=== PATIENT | female | born 2000 | race Two or more races ===

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

== ENCOUNTER 2022-08-16 16:24 | Outpatient (REF) | payer OTHER, MEDICAID, SELFPAY ==
--- NOTE | ~2022-08-16 | XR_ITS ---
EXAMINATION: XR THORACOLUMBAR SPINE CLINICAL INFORMATION: Patient states on and off pain for months. Pain on right side of upper back. COMPARISON: Chest of 08/14/2021. TECHNIQUE: 4 views of the thoracic spine. FINDINGS: Slight rightward curvature at the thoracolumbar junction. No thoracic vertebral body compression fractures are identified. Mild degenerative changes with hypertrophic change at the lower thoracic spine. Degenerative changes on limited views of the cervical spine. XR/XR thoracic spine 2V IMPRESSION: 1. Slight rightward curvature at the thoracolumbar junction. 2. Mild degenerative changes with hypertrophic change at the lower thoracic spine. 3. Degenerative changes on limited views of the cervical spine could be evaluated with dedicated views of the cervical spine.
== END 2022-08-16 16:25 | disposition home or self-care (01) ==
LOC: HO.HHCX 16:24
PROVIDERS: Visit Provider Registered Nurse
DX: M54.6 Pain in thoracic spine (principal)
CPT/HCPCS: 72070

== ENCOUNTER 2022-09-27 10:54 | Outpatient (REF) | payer OTHER, MEDICAID, SELFPAY ==
[2022-09-27 12:11] LABS: Hemoglobin 11.7 g/dl (12.0-16.0)
[2022-09-27 13:15] LABS: Alanine Aminotransferase 15 U/L (0-31); Aspartate Amino Transferase 16 U/L (5-31)
== END 2022-09-27 10:55 | disposition home or self-care (01) ==
LOC: HO.HHCL 10:54
PROVIDERS: Visit Provider Advanced Practice Midwife
DX: F66 Other sexual disorders (principal); D64.9 Anemia, unspecified
CPT/HCPCS: 36415; 84450; 84460; 85014; 85018

== ENCOUNTER 2022-10-07 14:35 | Outpatient (REF) | payer OTHER, MEDICAID, SELFPAY ==
--- NOTE | ~2022-10-07 | XR_ITS ---
EXAMINATION: XR CERVICAL SPINE CLINICAL INFORMATION: Left-sided pain radiating to neck and head COMPARISON: None available. TECHNIQUE: Frontal, lateral and open-mouth views of the cervical spine were obtained. FINDINGS: There are no prevertebral soft tissue or bony abnormalities demonstrated. No compression fractures or subluxations are identified. Alignment is maintained at the atlanto-axial articulation. The disc spaces are preserved. No endplate changes are seen. The prevertebral soft tissues are normal. The foramina are patent. XR/XR cervical spine 3V IMPRESSION: Unremarkable examination.
--- NOTE | ~2022-10-07 | XR_ITS ---
EXAMINATION: XR CHEST 2 VIEW CLINICAL INFORMATION: Left-sided chest pain. COMPARISON: 08/14/2021 TECHNIQUE: PA and lateral views of the chest obtained. FINDINGS: The lungs are clear. There are no pleural effusions. The cardiomediastinal silhouette is normal. XR/XR chest 2V IMPRESSION: No acute cardiopulmonary disease.
== END 2022-10-07 14:36 | disposition home or self-care (01) ==
LOC: HO.HHCX 14:35
PROVIDERS: Visit Provider Emergency Medicine
DX: M54.2 Cervicalgia (principal); R07.9 Chest pain, unspecified
CPT/HCPCS: 71046; 72040

== ENCOUNTER 2022-11-17 11:54 | Outpatient (REF) | payer OTHER, MEDICAID, SELFPAY ==
[2022-11-17 13:15] LABS: MANUAL DIFF FLAG NO
[2022-11-17 13:28] LABS: Basophils Absolute Auto 0.1 X10*3/uL (0.0-0.2); Basophils Percent Auto 0.9 % (0-2); Eosinophils Absolute Auto 0.1 X10*3/uL (0.0-0.4); Eosinophils Percent Auto 1.7 % (0-4); Hemoglobin 14.1 g/dl (12.0-16.0); Imm Gran Abs Auto 0.02 X10*3/uL (0.00-0.03); Imm Gran Pct Auto 0.3 % (0.0-0.4); Lymphocytes Absolute Auto 1.6 X10*3/uL (1.2-4.9); Lymphocytes Percent Auto 24.5 % (20-40); Mean Corpuscular HGB Conc 32.8 g/dl (31.0-35.0); Mean Corpuscular Hemoglobin 27.3 pg (27.0-33.0); Mean Corpuscular Volume 83.3 fL (80.0-98.0); Mean Platelet Volume 8.7 fL (9.4-12.3); Monocytes Absolute Auto 0.4 X10*3/uL (0.1-1.2); Monocytes Percent Auto 5.3 % (2-11); Neutrophils Absolute Auto 4.5 x10*3/uL (2.0-8.3); Neutrophils Percent Auto 67.3 % (45-73); Platelet Count 354 X10*3/uL (160-400); Red Blood Count 5.16 X10*6/uL (4.20-5.50); Red Cell Distribution Width 12.7 % (11.0-16.0); White Blood Count 6.6 X10*3/uL (4.8-10.8)
[2022-11-17 14:21] LABS: Iron 211 mcg/dL (30-160); Percent Iron Saturation 43 % (15-50); Total Iron Binding Capacity 489 mcg/dL (228-428); Unsaturated Iron Binding 278 ug/dL
[2022-11-17 14:35] LABS: Ferritin 19 ng/mL (10-122)
== END 2022-11-17 11:55 | disposition home or self-care (01) ==
LOC: HO.HHCL 11:54
PROVIDERS: Visit Provider Registered Nurse
DX: D64.9 Anemia, unspecified (principal)
CPT/HCPCS: 36415; 82728; 83540; 85025

== ENCOUNTER 2023-02-15 | Outpatient (REF) | payer OTHER, SELFPAY | END 2023-02-15 00:01 | disposition home or self-care (01) | LOC: HO.HHCLNP | PROVIDERS: Visit Provider Pediatrics | DX: B34.9 Viral infection, unspecified (principal) | CPT/HCPCS: 87070 ==

== ENCOUNTER 2023-02-24 16:37 | Outpatient (REF) | payer OTHER, SELFPAY ==
[2023-02-24 18:05] LABS: Alanine Aminotransferase 14 U/L (0-31); Aspartate Amino Transferase 13 U/L (5-31)
== END 2023-02-24 16:38 | disposition home or self-care (01) ==
LOC: HO.HHCL 16:37
PROVIDERS: Visit Provider Advanced Practice Midwife
DX: F64.0 Transsexualism (principal)
CPT/HCPCS: 36415; 84450; 84460

== ENCOUNTER 2023-04-07 16:31 | Outpatient (REF) | payer OTHER, SELFPAY ==
[2023-04-07 17:39] LABS: Alanine Aminotransferase 17 U/L (0-31); Albumin Level 4.2 g/dL (3.5-5.0); Alkaline Phosphatase 51 U/L (39-117); Anion Gap 12 (12-20); Aspartate Amino Transferase 29 U/L (5-31); Bilirubin Total 0.7 mg/dL (0.0-1.0); Blood Urea Nitrogen 11 mg/dL (9-16); Calcium 9.3 mg/dL (8.4-10.2); Carbon Dioxide 25 mmol/L (22-29); Chloride 105 mmol/L (96-108); Estimated Glomerular Filt Rate > 60; Glucose Random 72 mg/dL (60-115); Potassium 4.3 mmol/L (3.3-5.1); Sodium 138 mmol/L (135-145); Total Protein 7.6 g/dL (6.5-8.0)
[2023-04-08 08:02] LABS: HBS Num1 1.69 mIU/mL (0-7.99); HBc Num1 0.16 S/CO (0.00-0.79); HBsAGNum1 0.54 S/CO (0.00-0.99); Hepatitis B Core Antibody Nonreactive (Nonreactive); Hepatitis B Surface Antigen Negative (Negative); ~HepC Num1 0.13 S/CO (0.00-0.79); ~Hepatitis B Surface Antibody NONREACTIVE (Nonreactive); ~Hepatitis C Antibody Nonreactive (Nonreactive)
[2023-04-08 09:30] LABS: Hepatitis A Antibody IgG REACTIVE (Nonreactive); ~Hepatitis A Antibody IgG 3.68 S/CO (0.00-0.99)
[2023-04-09 19:58] LABS: C. trachomatis RNA TMA NOT DETECTED (NOT DETECTED); N. gonorrhoeae RNA TMA NOT DETECTED (NOT DETECTED)
== END 2023-04-07 16:32 | disposition home or self-care (01) ==
LOC: HO.HHCL 16:31
PROVIDERS: Visit Provider Emergency Medicine
DX: R82.998 Other abnormal findings in urine (principal); R30.0 Dysuria
CPT/HCPCS: 36415; 80053; 81513; 86704; 86706; 86708; 86803; 87086; 87340; 87491; 87591

== ENCOUNTER 2023-04-18 09:32 | Outpatient (REF) | payer OTHER, SELFPAY ==
[2023-04-18 11:50] LABS: Hematocrit 44.8 % (37.0-47.0); Hemoglobin 15.1 g/dl (12.0-16.0)
[2023-04-22 15:13] LABS: Testosterone, Total 426 ng/dL (2-45)
== END 2023-04-18 09:33 | disposition home or self-care (01) ==
LOC: HO.HHCL 09:32
PROVIDERS: Visit Provider Advanced Practice Midwife
DX: F64.0 Transsexualism (principal)
CPT/HCPCS: 36415; 84403; 85014; 85018

== ENCOUNTER 2023-08-08 14:00 | Outpatient (REF) | payer OTHER, SELFPAY ==
[2023-08-08 16:24] LABS: Hematocrit 45.2 % (37.0-47.0); Hemoglobin 14.4 g/dl (12.0-16.0)
[2023-08-08 16:40] LABS: Alanine Aminotransferase 13 U/L (0-31); Aspartate Amino Transferase 14 U/L (5-31)
[2023-08-14 23:08] LABS: Testosterone, Total 405 ng/dL (2-45)
== END 2023-08-08 14:01 | disposition home or self-care (01) ==
LOC: HO.HHCL 14:00
PROVIDERS: Visit Provider Advanced Practice Midwife
DX: F64.0 Transsexualism (principal)
CPT/HCPCS: 36415; 84403; 84450; 84460; 85014; 85018

== ENCOUNTER 2023-09-29 10:31 | Outpatient (REF) | payer OTHER, SELFPAY ==
[2023-10-02 15:34] LABS: TS Negative Control Passed; TS Panel A 0; TS Panel B 0; TS Positive Control Passed; TSpotTB Negative (Negative)
== END 2023-09-29 10:32 | disposition home or self-care (01) ==
LOC: HO.HHCL 10:31
PROVIDERS: Visit Provider Registered Nurse
DX: Z11.1 Encounter for screening for respiratory tuberculosis (principal)
CPT/HCPCS: 36415; 86481

== ENCOUNTER 2023-11-25 18:04 | Outpatient (REF) | payer OTHER, SELFPAY ==
[2023-11-26 11:56] LABS: Bacterial Vaginosis PCR NEGATIVE (Negative); Candida Group PCR NOT DETECTED (Not Detect); Candida glab krusei PCR NOT DETECTED (Not Detect); Trichomonas vaginalis PCR NOT DETECTED (Not Detect)
== END 2023-11-25 18:05 | disposition home or self-care (01) ==
LOC: HO.LNP 18:04
PROVIDERS: Visit Provider Internal Medicine Geriatric Medicine
DX: N89.8 Other specified noninflammatory disorders of vagina (principal)
CPT/HCPCS: 0352U

== ENCOUNTER 2023-12-13 16:19 | Outpatient (REF) | payer OTHER, SELFPAY ==
[2023-12-13 18:02] LABS: Hematocrit 43.2 % (37.0-47.0); Hemoglobin 14.3 g/dl (12.0-16.0)
[2023-12-13 18:30] LABS: Alanine Aminotransferase 179 U/L (0-31); Aspartate Amino Transferase 54 U/L (5-31)
[2023-12-18 15:28] LABS: Testosterone, Total 417 ng/dL (2-45)
== END 2023-12-13 16:20 | disposition home or self-care (01) ==
LOC: HO.HHCL 16:19
PROVIDERS: Visit Provider Advanced Practice Midwife
DX: F64.0 Transsexualism (principal)
CPT/HCPCS: 36415; 84403; 84450; 84460; 85014; 85018

== ENCOUNTER 2023-12-19 11:58 | Outpatient (REF) | payer OTHER, SELFPAY ==
[2023-12-20 03:56] LABS: HBS Num1 17.23 mIU/mL (0-7.99); HBc Num1 0.09 S/CO (0.00-0.79); HBsAGNum1 0.46 S/CO (0.00-0.99); Hepatitis A Antibody IgM 0.22 Index (0-0.79); Hepatitis B Core Antibody Nonreactive (Nonreactive); Hepatitis B Surface Antigen Negative (Negative); ~HepC Num1 0.18 S/CO (0.00-0.79); ~Hepatitis A Antibody IgM Nonreactive (Nonreactive); ~Hepatitis B Surface Antibody REACTIVE (Nonreactive); ~Hepatitis C Antibody Nonreactive (Nonreactive)
[2023-12-20 15:40] LABS: Alanine Aminotransferase 77 U/L (0-31); Albumin Level 4.2 g/dL (3.5-5.0); Alkaline Phosphatase 76 U/L (39-117); Aspartate Amino Transferase 25 U/L (5-31); Bilirubin Direct 0.2 mg/dL (0.0-0.5); Bilirubin Total 0.5 mg/dL (0.0-1.0); Total Protein 7.4 g/dL (6.5-8.0)
== END 2023-12-19 11:59 | disposition home or self-care (01) ==
LOC: HO.HHCL 11:58
PROVIDERS: Visit Provider Advanced Practice Midwife
DX: R74.01 Elevation of levels of liver transaminase levels (principal)
CPT/HCPCS: 36415; 80076; 86704; 86706; 86709; 86803; 87340

== ENCOUNTER 2024-02-18 14:44 | Outpatient (REF) | payer OTHER, SELFPAY ==
--- OUTSIDE RECORDS SUMMARY | 2024-02-18 14:47 | XMS_ITS | Data Portability ---
Author Organization [facility], [address] Address [address] [place] [address] Care Team Providers Care Tunneling Machine Operator Name Role Phone [facility] Primary Care Provider [phone] Assessment No assessment recorded. Plan of Treatment Reminders Order Date Submit Date Provider Last Modified By Organization Details Last Modified Time Details Appointments None recorded. Lab rapid strep group A, throat 2022 023 [facility], [address] [place], [address], 3 18:38:49 Referral None recorded. Procedures None recorded. Surgeries None recorded. Imaging XR, hand, 3 or more view 2022 023 [email or web address] [facility], [address] [place] [address], [address], 3 10:57:40 Medication Orders Augmentin 875 mg-125 mg tablet 2022 023 [email or web address] Not available 3 10:08:28 fexofenad ine-pseud oephedrin e ER 180 mg-240 mg tablet,ex t.release 24 hr 2022 023 [email or web address] Not available 3 18:40:25 prednison e 20 mg tablet 2022 023 [email or web address] Not available 3 10:08:12 naproxen 500 mg tablet 2022 023 [id number], [address] [place] [address], [phone], 10:56:33 Patient TargetsNo targets recorded. Patient Instructions Encounter Date Encounter Id Patient Instructions Last Modified By Organization Details Last Modified Time 06/11/2022 [id number] earache: care instructions Not available 06/11/2022 18:38:49 ear infection (otitis media): care instructions Not available 06/11/2022 18:38:49 An ear infection may start with a cold and affect the middle ear (otitis media). It can hurt a lot. Most ear infections clear up on their own in a couple of days and do not need antibiotics. Also, antibiotics do not work against viruses, which may be the cause of your infection. Regular doses of pain relievers are the best way to reduce your fever and help you feel better. How can you care for yourself at home? Take pain medicines exactly as directed. If the doctor gave you a prescription medicine for pain, take it as prescribed. If you are not taking a prescription pain medicine, take an pshw-dfs-yafppnq medicine, such as acetaminophen (Tylenol), ibuprofen (Advil, Motrin), or naproxen (Aleve). Read and follow all instructions on the label. Do not take two or more pain medicines at the same time unless the doctor told you to. Many pain medicines have acetaminophen, which is Tylenol. Too much acetaminophen (Tylenol) can be harmful. Plan to take a full dose of pain reliever before bedtime. Getting enough sleep will help you get better. Try a warm, moist face cloth on the ear. It may help relieve pain. If your doctor prescribed antibiotics, take them as directed. Do not stop taking them just because you feel better. You need to take the full course of antibiotics. Not available 06/11/2022 18:38:46 09/19/2022 [id number] learning about rice (rest, ice, compression, and elevation) Not available 09/19/2022 10:56:13 Elevate injured extremity to help decrease swelling Ice the area 15 minutes every 3-4 hours ibuprofen and/or tylenol as needed for pain Follow up with [facility] or your pcp if the injury fails to heal in the coming weeks Not available 09/19/2022 10:55:58 A hand can break (fracture) during sports, a fall, or a car crash. The break may happen when your hand twists, is hit, or is used to protect you in a fall. Fractures can range from a small, hairline crack, to a bone or bones broken into two or more pieces. Your treatment depends on how bad the break is. Your doctor may have put your hand in a brace, splint, or cast to allow it to heal or to keep it stable until you see another doctor. It may take weeks or months for your hand to heal. You can help it heal with some care at home. You heal best when you take good care of yourself. Eat a variety of healthy foods, and don't smoke. How can you care for yourself at home? Put ice or a cold pack on your hand for 10 to 20 minutes at a time. Try to do this every 1 to 2 hours for the next 3 days (when you are awake). Put a thin cloth between the ice and your cast or splint. Keep your cast or splint dry. Follow the cast care instructions your doctor gives you. If you have a splint, do not take it off unless your doctor tells you to. Take pain medicines exactly as directed. If the doctor gave you a prescription medicine for pain, take it as prescribed. If you are not taking a prescription pain medicine, ask your doctor if you can take an rnmb-mza-nqmqrft medicine. Prop up your hand on pillows when you sit or lie down in the first few days after the injury. Keep your hand higher than the level of your heart. This will help reduce swelling. Follow instructions for exercises to keep your arm strong. Wiggle your uninjured fingers often to reduce swelling and stiffness, but do not use that hand to grasp or carry anything. [email or web address] Not available 09/19/2022 10:55:49 Reason for Referral None Reported. Results Created Date Observation Date Name Description Value Unit Range Abnormal Flag Note LastModifiedBy Organization Detail LastModifiedTime 06/12/19 23 06/11/2022 rapid strep group A, throa t Unknown Analyte Normal = Negati ve Not Available [address] [address] [place], [address], 06/11/2022 18:11:10 06/12/19 23 06/11/2022 rapid strep group A, throa t Unknown Analyte negati ve Not Available [email or web address] [facility], [place], [address], 06/11/2022 18:11:10 09/20/19 23 09/19/2022 XR, hand, 3 or more view No observ ation record ed. [facility] [address] [place], [address], 09/19/2022 12:33:46 Result Notes None recorded. Problems Name Problem SNOMED Code Status Onset Date Resolution Date Notes Provider Name and Address Organization Details Recorded Time Depressive disorder 31784994 Active 023 NICAJULIUS BENSON null, [place] - [facility] 18:10:12 Asthma 366019172 Active 023 NICAJULIUS BENSON null, PA - [facility] 18:10:17 Problem Notes None recorded. Procedures Surgical History None recorded. Imaging Results Imaging Date Name Status LastModified by Organiz ation Details LastModified Time 09/19/2022 XR, hand, 3 or more view completed [facility] [address] [place], [address], 09/19/2022 12:33:46 Procedure Notes None recorded. Medical Equipment None Reported. Allergies No known drug allergies Medications Name Sig Start Date Stop Date Status Note LastModified by Organization Details LastModified Time fluoxetine 40 mg capsule TAKE 1 CAPSULE BY MOUTH EVERY MORNING active Not Available Not Available No t Available ibuprofen 800 mg tablet TAKE 1 TABLET BY MOUTH EVERY 8 HOURS NEEDED active Not Available Not Available No t Available hydrocodone 5 mg-acetamin ophen 325 mg tablet TAKE 1 TABLET BY MOUTH EVERY 8 HOURS NEEDED FOR PAIN active Not Available Not Available No t Available prednisone 20 mg tablet TAKE 2 TABLETS BY MOUTH DAILY IN THE MORNING FOR 3 DAYS 09/19 completed Not Available Not Available Not Available metronidazo le 500 mg tablet TAKE 1 TABLET BY MOUTH EVERY 12 HOURS FOR 7 DAYS *NO ALCOHOL OR VINEGAR PRODUCTS FOR 10 DAYS* 06/11 completed Not Available Not Available Not Available acetaminoph en 300 mg-codeine 30 mg tablet TAKE 1 TABLET EVERY 8 HOURS NEEDED active Not Available Not Available No t Available oxycodone-a cetaminophe n 5 mg-325 mg tablet TAKE 1 TABLET BY MOUTH EVERY 6 TO 8 HOURS NEEDED FOR PAIN 06/11 completed Not Available Not Available Not Available desonide 0.05 % topical ointment APPLY TO THE AFFECTED AREA(S) TWICE DAILY FOR FOURTEEN DAYS active Not Available Not Available No t Available ibuprofen 400 mg tablet TAKE 1 TABLET BY MOUTH EVERY 8 HOURS NEEDED FOR PAIN OR FEVER 06/11 completed Not Available Not Available Not Available diclofenac potassium 50 mg tablet TAKE 1 TABLET BY MOUTH THREE TIMES DAILY IN THE MORNING, AT NOON, AND AT BEDTIME active Not Available Not Available No t Available hydrocortis one 2.5 % topical cream APPLY A THIN LAYER TO THE affected AREAS TWICE DAILY FOR 2 WEEKS active Not Available Not Available No t Available cyanocobala min (vit B-12) 1,[address] 1 TABLET UNDER TONGUE AND DISSOLVE FOR 30 SECONDS BEFORE SWALLOW EVERY DAY 09/19 completed Not Available Not Available Not Available fluoxetine 20 mg capsule TAKE 1 CAPSULE BY MOUTH EVERY MORNING active Not Available Not Available No t Available metformin ER 500 mg tablet,exte nded release 24 hr TAKE 1 TABLET BY MOUTH EVERY EVENING DO NOT BREAK, CRUSH, DISSOLVE OR CHEW active Not Available Not Available No t Available cholecalcif bernardo (vitamin D3) 125 mcg (5,000 unit) capsule TAKE 1 CAPSULE BY MOUTH EVERY DAY 09/19 completed Not Available Not Available Not Available naproxen 500 mg tablet Take 1 tablet twice a day by oral route with meals for 10 days. 2022 active Not Available Not Available Not Avai lable amoxicillin 875 mg-potassiu m clavulanate 125 mg tablet TAKE 1 TABLET BY MOUTH EVERY 12 HOURS WITH MEALS FOR 10 DAYS 09/19 completed Not Available Not Available Not Available cyclobenzap rine 5 mg tablet TAKE 2 TABLETS BY MOUTH THREE TIMES DAILY NEEDED FOR MUSCLE SPASMS active Not Available Not Available No t Available fexofenadin e-pseudoeph edrine ER 180 mg-240 mg tablet,ext. release 24 hr Take 1 tablet every day by oral route in the evening for 10 days. 2022 active Not Available Not Available Not Avai lable hydrocodone 5 mg-acetamin ophen 300 mg tablet TAKE 1 TABLET BY MOUTH EVERY 8 HOURS FOR UP TO 5 DAYS 06/11 completed Not Available Not Available Not Available Camrese Lo 0.1 mg-20 mcg (84)/10 mcg (7) tablets,3 month dose pack TAKE 1 TABLET BY MOUTH DAILY. DO NOT SKIP DOSES. active Not Available Not Available No t Available Vitals Date Recorded Body height Body mass index (BMI) Percentile per age and sex Body mass index (BMI) Body weight Oxygen saturation Oxygen saturation in Arterial blood by Pulse oximetry Heart rate Respiratory rate Body temperature Systolic blood pressure Diastolic blood pressure Provider Name and Address Organization Details Last Updated DateTime 3 160.02 cm 95 % 31.7 kg/m2 93395.0 3 g 100 % 100 % 77 /min 16 /min 96.8 [degF] 132 mm[Hg] 82 mm[Hg] NICA RUST [facility] 3 18:08:24 Date Recorded Body height Body mass index (BMI) Percentile per age and sex Body mass index (BMI) Body weight Respiratory rate Heart rate Oxygen saturation Oxygen saturation in Arterial blood by Pulse oximetry Body temperature Systolic blood pressure Diastolic blood pressure Provider Name and Address Organization Details Last Updated DateTime 3 160.02 cm 97 % 34.7 kg/m2 39780.1 g 16 /min 98.9 /min 100 % 100 % 98.13 [degF] 130 mm[Hg] 80 mm[Hg] SUKHDEEP DRINKDAMIENE HI [facility] 3 10:12:15 Social History Question Answer Notes LastModified by Organizat ion Details LastModified Time Tobacco Smoking Status Never Smoker NICA rivera PA [facility] 06/11/2022 18:10:57 What Is Your Level Of Alcohol Consumption? Occasional Information not available 06/11/2022 Do You Use Any Illicit Or Recreational Drugs? No Information not available 06/11/2022 Have You Recently Traveled Abroad? No Information not available 06/11/2022 Sex: Unknown Functional Status None recorded. Mental Status None recorded. Family History Relationship Description Onset Age of this Age Resolved Age Notes LastModified by Organization Details LastModified Time Father Diabetes mellitus Not available 2022 18:10:31 Unspecified Relation Hypertensive disorder Not available 2022 18:10:45 Medical History No medical history recorded. Gynecological History Statement/Question Response Is there any chance of ? No LMP Approximate Obstetrics History GPAL:G 0 P 0 0 0 0 Immunizations Vaccine Type Date Status Note Provider Nam e and Address Organization Details Recorded Time HPV9 6 completed SUKHDEEP DRINKWINE null, PA - [facility] 09/19/2022 10:09:03 HPV9 5 completed SUKHDEEP DRINKWINE null, PA - [facility] 09/19/2022 10:09:03 HPV9 6 completed SUKHDEEP DRINKWINE null, PA - [facility] 09/19/2022 10:09:03 IPV 4 completed SUKHDEEP DRINKWINE null, PA - [facility] 09/19/2022 10:09:03 IPV 3 completed SUKHDEEP DRINKWINE null, PA - [facility] 09/19/2022 10:09:03 IPV 7 completed SUKHDEEP DRINKWINE null, PA - [facility] 09/19/2022 10:09:03 IPV 3 completed SUKHDEEP DRINKWINE null, PA - [facility] 09/19/2022 10:09:03 MMR 4 completed SUKHDEEP DRINKWINE null, PA - [facility] 09/19/2022 10:09:03 MMR 7 completed SUKHDEEP DRINKWINE null, PA - [facility] 09/19/2022 10:09:03 COVID-19, mRNA, LNP-S, PF, 30 mcg/0.3 mL dose 1 completed SUKHDEEP DRINKWINE null, PA - [facility] 09/19/2022 10:09:03 COVID-19, mRNA, LNP-S, PF, 30 mcg/0.3 mL dose, kristy-sucrose 2 completed SUKHDEEP DRINKWINE null, PA - [facility] 09/19/2022 10:09:03 pneumococcal conjugate PCV 7 5 completed SUKHDEEP DRINKWINE null, PA - [facility] 09/19/2022 10:09:03 pneumococcal conjugate PCV 7 4 completed SUKHDEEP DRINKWINE null, PA - [facility] 09/19/2022 10:09:03 pneumococcal conjugate PCV 7 3 completed SUKHDEEP DRINKWINE null, PA - [facility] 09/19/2022 10:09:03 pneumococcal conjugate PCV 7 3 completed SUKHDEEP DRINKWINE null, PA - [facility] 09/19/2022 10:09:03 Tdap 5 completed SUKHDEEP DRINKWINE null, PA - [facility] 09/19/2022 10:09:03 varicella 4 completed SUKHDEEP DRINKWINE null, PA - [facility] 09/19/2022 10:09:03 varicella 7 completed SUKHDEEP DRINKWINE null, PA - [facility] 09/19/2022 10:09:03 Influenza, split virus, trivalent, preservative 9 completed SUKHDEEP DRINKWINE null, PA - [facility] 09/19/2022 10:09:03 influenza, split (incl. purified surface antigen) 3 completed SUKHDEEP DRINKWINE null, PA - [facility] 09/19/2022 10:09:03 Hep B, adolescent or pediatric 4 completed SUKHDEEP DRINKWINE null, PA - [facility] 09/19/2022 10:09:03 Hep B, adolescent or pediatric 4 completed SUKHDEEP DRINKWINE null, PA - [facility] 09/19/2022 10:09:03 Hep B, adolescent or pediatric 3 completed SUKHDEEP DRINKWINE null, PA - [facility] 09/19/2022 10:09:03 Hep A, ped/adol, 2 dose 6 completed SUKHDEEP DRINKWINE null, PA - [facility] 09/19/2022 10:09:03 Hep A, ped/adol, 2 dose 5 completed SUKHDEEP DRINKWINE null, PA - [facility] 09/19/2022 10:09:03 Hib (HbO) 5 completed SUKHDEEP DRINKWINE null, PA - [facility] 09/19/2022 10:09:03 Hib ([facility]) 4 completed SUKHDEEP DRINKWINE null, PA - [facility] 09/19/2022 10:09:03 Hib ([facility]) 3 completed SUKHDEEP DRINKWINE null, PA - [facility] 09/19/2022 10:09:03 Hib ([facility]) 3 completed SUKHDEEP DRINKWINE null, PA - [facility] 09/19/2022 10:09:03 meningococcal MCV4P 5 completed SUKHDEEP DRINKWINE null, PA - [facility] 09/19/2022 10:09:03 meningococcal MCV4P 9 completed SUKHDEEP DRINKWINE null, PA - [facility] 09/19/2022 10:09:03 DTaP, 5 pertussis antigens 4 completed SUKHDEEP DRINKWINE null, PA - [facility] 09/19/2022 10:09:03 DTaP, 5 pertussis antigens 5 completed SUKHDEEP DRINKWINE null, PA - [facility] 09/19/2022 10:09:03 DTaP, 5 pertussis antigens 3 completed SUKHDEEP DRINKWINE null, PA - [facility] 09/19/2022 10:09:03 DTaP, 5 pertussis antigens 7 completed SUKHDEEP DRINKWINE null, PA - [facility] 09/19/2022 10:09:04 DTaP, 5 pertussis antigens 3 completed SUKHDEEP DRINKWINE null, PA - [facility] 09/19/2022 10:09:04 Influenza, split virus, quadrivalent, PF 3 completed SUKHDEEP DRINKWINE null, PA - [facility] 09/19/2022 10:09:04 Influenza, split virus, quadrivalent, PF 7 completed SUKHDEEP DRINKWINE null, PA - [facility] 09/19/2022 10:09:04 Influenza, split virus, quadrivalent, PF 6 completed SUKHDEEP DRINKWINE null, PA - [facility] 09/19/2022 10:09:04 Influenza, split virus, quadrivalent, PF 8 completed SUKHDEEP DRINKWINE null, PA - [facility] 09/19/2022 10:09:04 Influenza, split virus, quadrivalent, PF 9 completed SUKHDEEP DRINKWINE null, PA - [facility] 09/19/2022 10:09:04 Influenza, split virus, quadrivalent, PF 0 completed SUKHDEEP DRINKWINE null, PA - [facility] 09/19/2022 10:09:04 Past Encounters Encounter ID Performer Location Encounter Start Date Encounter Closed Date Diagnosis/Indication Diagnosis SNOMED-CT Code Diagnosis ICD10 Code Diagnosis Note [id number] [place] [id number] [facility] [address] [place] [address] 06/11/2022 17:34:11 06/11/2022 18:40:37 Acute right otitis media 803900906 H66.91 [id number] [place] [id number] [facility] [address] [place] [address] 09/19/2022 08:26:46 09/19/2022 10:57:40 Pain in right hand 6585560855 85751 M79.641 Health Concerns Section Related Observation LastModified by Organization Detai ls LastModified Time None Recorded Concern Status LastModified by Organization Details LastModified Time None Recorded Advance Directives Directive None Recorded Payers Encounter Date Sequence Insurance Name Policy Number Policy Nicole Covered Member ID Nicole Member ID Guarantor Name 06/11/2022 1 [facility] (MEDICAID REPLACEMENT - HMO) [id number] Cinthia Avila [id number] Cinthia Avila 09/19/2022 1 [facility] [employer] [employer] (MEDICAID REPLACEMENT - HMO) [id number] Cinthia Avila [id number] Cinthia Avila Notes Date Note Type Note Provider Name and Address Organization Details Recorded Time 06/11/2022 text/html CongestionReport ed bypatient.Notes:nasal congestion with post nasal drip x 3 days. denies nay fever or fever with chills. no SOB or respiratory distress.Ear Pain Brief HPIReported bypatient.Location:pain radiates to neck; bilateral Onset/Timing:intermitte nt pain; gradual onset Duration:occurs daily; sensation/episode variable length Quality:aching pain;sharp pain Severity:getting worse; current pain 5/10 Context:recent ear infection Alleviating factors:ototopical antibiotics: ; nasal steroid spray Aggravating factors:sinus infections; allergies; irrigation of ear Associated Symptoms:Cough;nasal congestion;nasal discharge Mamadou Keyes NP [address] [place], [address], [place] - [facility] 06/11/2022 18:39:24 09/19/2022 text/html Wrist/Hand Injur y UCReported bypatient.source of patient informationPatient arrived at Urgent Care ambulatory; 21 year old female comes in stating she has anger issues and habit of hitting thing like punching bag. last night she box and hit [place] and other material with her both hand which are bruised now but have pain and redness develop in right hand more then left. here to rule out fracture. Location:right; hand Associated Symptoms:no fever;pain;swelling;red ness;warmth;ecchymosis Severity:moderate Duration:1 days Context:sports injury Hand Dominance:right Aggravating Factors:lifting; carrying; gripping; ROM Previous InjuryNo prior injury to affected body part Previous Treatmentnone Prior Imaging:none Mamadou Keyes NP [address] [place], [address], [place] - [facility] 09/19/2022 10:57:09 OBGyn Episode No OBEpisode recorded.
[2024-02-19 09:25] LABS: Bacterial Vaginosis PCR POSITIVE (Negative); Candida Group PCR NOT DETECTED (Not Detect); Candida glab krusei PCR NOT DETECTED (Not Detect); Trichomonas vaginalis PCR NOT DETECTED (Not Detect)
== END 2024-02-18 14:45 | disposition home or self-care (01) ==
LOC: HO.HHCLNP 14:44
PROVIDERS: Visit Provider Pediatrics
DX: R30.0 Dysuria (principal)
CPT/HCPCS: 81515

== ENCOUNTER 2024-04-25 12:36 | Outpatient (REF) | payer OTHER, SELFPAY ==
[2024-04-25 13:58] LABS: Hematocrit 47.5 % (37.0-47.0); Hemoglobin 16.1 g/dl (12.0-16.0); Mean Corpuscular HGB Conc 33.9 g/dl (31.0-35.0); Mean Corpuscular Hemoglobin 28.1 pg (27.0-33.0); Mean Platelet Volume 8.5 fL (9.4-12.3); Platelet Count 271 X10*3/uL (160-400); Red Blood Count 5.72 X10*6/uL (4.20-5.50); Red Cell Distribution Width 12.8 % (11.0-16.0); White Blood Count 4.7 X10*3/uL (4.8-10.8)
[2024-04-25 13:59] LABS: Prothrombin Time 11.1 SEC (10.9-12.4)
[2024-04-25 14:02] LABS: Partial Thromboplastin Time 29.9 SEC (26.0-36.8)
--- OUTSIDE RECORDS SUMMARY | 2024-04-25 14:40 | XMS_ITS | Encounter Summary ---
Author Organization [employer] Address [address]t [place] [address] Care Team Providers Care Shipping Clerk Name Role Phone Jolene Patel [employer] Primary Care Provider Reason for Visit * Reason Onset Date Comments Med Refill 04/01/2024 Encounter Details Date Type Department Care Team (Late st Contact Info) Description 04/01/2024 Refill [facility] [address] [place] [address] Chela Grant CN [address] [place] [address] Social History Tobacco Use Types Packs/Day Years Used Date Smoking Tobacco: Never Passive Smoke Exposure: Never Smokeless Tobacco: Never Alcohol Use Standard Drinks/Week Comments Yes 0 (1 standard drink = 0.6 oz pur e alcohol) Depression Answer Date Recorded Patient Health Questionnaire-9 Score 7 10/13/2023 Patient Health Questionnaire-9 Score 7 10/13/2023 Last PHQ-9: Questionnaire Data Not on file 0 10/13/2023 Housing Stability Answer Date Recorded What is your housing situation today? I have christopher looney 03/28/[address] you li ve. Do you have problems with any of the following? None of the above 03/28/2023 Food Insecurity Answer Date Recorded Within the past 12 months, y ou worried that your food would run out before you got money to buy more: Sometimes True 2023 Within the past 12 months,th e food you bought just didn't last and you didn't have enough money to get more: Sometimes True 03/28/2023 Transportation Answer Date Recorded In the past 12 months, has l ack of transportation kept you from medical appts, meetings, work or from getting things needed for daily living? No 03/28/2023 Utilities Answer Date Recorded In the past 12 months, has t he electric, gas, oil or water company threatened to shut off services in your home? No 03/28/2023 Depression Answer Date Recorded Patient Health Questionnaire-2 Score 1 10/13/2023 Comments No Sex and Gender Information Value Date Recorded Sex Assigned at Female 12/14/2021 10:17 AM EDT Legal Sex Female 10:17 AM EDT Gender Identity Male 01/05/2023 3:09 PM EST Sexual Orientation Lesbian 02/16/2022 3: 46 PM EST documented as of this encounter Plan of Treatment Upcoming Encounters Date Type Department Care Team (Late st Contact Info) Description 05/03/2024 9:30 AM EDT Procedure Visit [facility] [address] [place] [address] Chela Grant CNM [address] [place] [address] 06/13/2024 10:30 AM EDT Office Visit [facility] [address] [place] [address] Jolene Patel FNP [address] [place] [address] documented as of this encounter Visit Diagnoses Not on filedocumented in this encounter Additional Health Concerns Assessment Noted Time PHQ-9 Depression Total Score: 7 10/13/19 24 1:17 PM EDT documented as of this encounter Care Teams Shipping Clerk Relationship Specialty Start Date End Date Jolene Patel FNP [address] [place] [address] PCP - General Family Medicine 08/12/21 documented as of this encounter
--- OUTSIDE RECORDS SUMMARY | 2024-04-25 14:40 | XMS_ITS | Data Portability ---
Author Organization [facility], [address] Address [address] [place] [address] Care Team Providers Care Mental Health Advanced Practice Nurse Name Role Phone [facility] Primary Care Provider Assessment No assessment recorded. Plan of Treatment Reminders Order Date Submit Date Provider Last Modified By Organization Details Last Modified Time Details Appointments None recorded. Lab rapid strep group A, throat 2022 023 [facility] [address], [address] [place], [address], 3 18:38:49 Referral None recorded. Procedures None recorded. Surgeries None recorded. Imaging XR, hand, 3 or more view 2022 023 [email or web address] [facility], [address] [place] [address], [address], 3 10:57:40 Medication Orders naproxen 500 mg tablet 2022 023 LIDIA Not available 3 10:56:33 Augmentin 875 mg-125 mg tablet 2022 023 [email or web address] Not available 3 10:08:28 fexofenad ine-pseud oephedrin e ER 180 mg-240 mg tablet,ex t.release 24 hr 2022 023 [email or web address] Not available 3 18:40:25 prednison e 20 mg tablet 2022 023 [email or web address] Not available 3 10:08:12 Patient TargetsNo targets recorded. Patient Instructions Encounter Date Encounter Id Patient Instructions Last Modified By Organization Details Last Modified Time 06/11/2022 [id number] earache: care instructions Not available 06/11/2022 18:38:49 ear infection (otitis media): care instructions [email or web address] Not available 06/11/2022 18:38:49 An ear infection [...] taking a prescription pain medicine, take an bdrt-ubt-apkcmoj medicine, such as acetaminophen (Tylenol), ibuprofen (Advil, [...] of antibiotics. Not available 06/11/2022 18:38:46 09/19/2022 [id number] learning about rice (rest, ice, compression, and elevation) [email or web address] Not available 09/19/2022 10:56:13 Elevate injured extremity to help decrease swelling Ice the area 15 minutes every 3-4 hours ibuprofen and/or tylenol as needed for pain Follow up with [facility] or your pcp if the injury fails to heal in the coming weeks [email or web address] Not available 09/19/2022 10:55:58 A hand can [...] your doctor if you can take an sfuk-iaf-agfmlro medicine. Prop up your hand on pillows [...] that hand to grasp or carry anything. Not available 09/19/2022 10:55:49 Reason for Referral None Reported. Results Created Date Observation Date Name Description Value Unit Range Abnormal Flag Note LastModifiedBy Organization Detail LastModifiedTime 06/12/1906/11/2022 rapid strep group A, throa t Unknown Analyte Normal = Negati ve Not Available [facility] [address] [place], [address], 06/11/2022 18:11:10 06/12/1906/11/2022 rapid strep group A, throa t Unknown Analyte negati ve Not Available [id number] [facility], [place], [address], 06/11/2022 18:11:10 09/20/19 23 09/19/2022 XR, hand, 3 or more view No observ ation record ed. [facility] [address] [facility] [place], [address], 09/19/2022 12:33:46 Result Notes None recorded. Problems Name Problem SNOMED Code Status Onset Date Resolution Date Notes Provider Name and Address Organization Details Recorded Time Depressive disorder 64053398 Active 023 NICAJULIUS BENSON null, [place] - [facility] 3 18:10:12 Asthma 224391953 Active 023 NICA BENSON null, [place] - [facility] 3 18:10:17 Problem Notes None recorded. Procedures Surgical History None recorded. Imaging Results Imaging Date Name Status LastModified by Organiz ation Details LastModified Time 09/19/2022 XR, hand, 3 or more view completed [facility] [address] [place], [address], 09/19/2022 12:33:46 Procedure Notes None recorded. Medical [...] 3 160.02 cm 95 % 31.7 kg/m2 44013.0 3 g 100 % 100 % 77 /min 16 /min 96.8 [degF] 132 mm[Hg] 82 mm[Hg] NICA BENSON [employer] 3 18:08:24 Date Recorded Body height Body mass index (BMI) Percentile per age and sex Body mass index (BMI) Body weight Respiratory rate Pain severity - 0-10 verbal numeric rating [Score] - Reported Heart rate Oxygen saturation Oxygen saturation in Arterial blood by Pulse oximetry Body temperature Systolic blood pressure Diastolic blood pressure Provider Name and Address Organization Details Last Updated DateTime 3 160.02 cm 97 % 34.7 kg/m2 00708.1 g 16 /min 6 98.9 /min 100 % 100 % 98.13 [degF] 130 mm[Hg] 80 mm[Hg] SUKHDEEP EDWARDS [employer] 3 10:12:15 Social History Question Answer Notes LastModified by Organizat ion Details LastModified Time Tobacco Smoking Status Never Smoker NICA rivera [employer] 06/11/2022 18:10:57 What Is Your Level Of [...] 10:09:03 pneumococcal conjugate PCV 7 3 completed SUHKDEEP DRINKWINE null, PA - [facility] 09/19/2022 [...] PA - [facility] 09/19/2022 10:09:03 Hib (HbOC) 5 completed SUKHDEEP DRINKWINE null, [place] - [facility] 09/19/2022 10:09:03 Hib (HbOC) 4 completed SUKHDEEP DRINKWINE null, PA - [facility] 09/19/2022 10:09:03 Hib (HbOC) 3 completed SUKHDEEP DRINKWINE null, [place] - [facility] 09/19/2022 10:09:03 Hib (HbOC) 3 completed SUKHDEEP DRINKWINE null, PA - [...] SNOMED-CT Code Diagnosis ICD10 Code Diagnosis Note [id number] [place] [address] [facility] [address] [facility] [place] [address] 06/11/2022 17:34:11 06/11/2022 18:40:37 Acute right otitis media 194671332 H66.91 [id number] [place] [address] [place] [address] 09/19/2022 08:26:46 09/19/2022 10:57:40 Pain in right hand 6148811752 16767 M79.641 Health Concerns Section Related Observation LastModified by Organization Detai ls LastModified Time None Recorded Concern Status LastModified by Organization Details LastModified Time None Recorded Advance Directives Directive None Recorded Payers Encounter Date Sequence Insurance Name Policy Number Policy Nicole Covered Member ID Nicole Member ID Guarantor Name 06/11/2022 1 [facility] ([facility] - [facility]MO) [id number] Cinthia Avila [id number] Cinthia Avila 09/19/2022 1 [facility] (MEDICAID REPLACEMENT - HMO) [id number] Cinthia Avila [id number] Cinthia Avila Notes Date Note Type Note [...] Mamadou Keyes NP [address] [place], [address], [place] [employer] [facility] 06/11/2022 18:39:24 09/19/2022 text/html Wrist/Hand Injur [...] Mamadou Keyes NP [address] [place], [address], [place] [employer] [facility] 09/19/2022 10:57:09 OBGyn Episode No OBEpisode recorded.
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
--- OUTSIDE RECORDS SUMMARY | 2024-04-25 14:41 | XMS_ITS | Encounter Summary ---
Author Organization [employer] Address [address] [facility] 7[address] [place] [address] Care Team Providers Care Recreation Clerk Name Role Phone Jolene Patel STUDENT RECRUITER Primary Care Provider [phone] Reason for Visit * Reason Comments Med Refill Encounter Details Date Type Department Care Team ([facility] st Contact Info) Description 04/22/2023 Refill [facility] [address] [place] [address] Chela Grant, CN [address] [place] [address] Social History Tobacco Use Types Packs/Day Years Used Date Smoking Tobacco: Never Passive Smoke Exposure: Never Smokeless Tobacco: Never Alcohol Use Standard Drinks/Week Comments Yes 0 (1 standard drink = 0.6 oz pur e alcohol) Depression Answer Date Recorded Patient Health Questionnaire-9 Score 12 03/28/2023 Patient Health Questionnaire-9 Score 12 03/28/2023 Last PHQ-9: Questionnaire Data Not on file 0 03/28/2023 Housing Stability Answer Date Recorded What is [...] Answer Date Recorded Patient Health Questionnaire-2 Score 3 03/28/2023 Comments No Sex and Gender Information Value [...] Description 05/03/2024 9:30 AM EDT Procedure Visit [facility] [address] [place] [address] Chela Grant CNM [address] [place] [address] 06/13/2024 10:30 AM EDT Office Visit [facility] [address] [place] [address] Jolene Patel FNP [address] [place] [address] documented as of this encounter Visit Diagnoses Not on filedocumented in this encounter Additional Health Concerns Assessment Noted Time PHQ-9 Depression Total Score: 12 024 9:27 AM EST documented as of this encounter Care Teams Recreation Clerk Relationship Specialty Start Date End Date Jolene Patel FNP [address] [place] [address] PCP - General Family Medicine 08/12/21 documented as of this encounter
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
--- OUTSIDE RECORDS SUMMARY | 2024-04-25 14:41 | XMS_ITS | Encounter Summary ---
Author Organization [employer] Address [address] [facility] 7t [place] [address] Care Team Providers Care Director Online Marketing Name Role Phone Jolene Patel AGRICULTURE EXTENSION SPECIALIST Primary Care Provider [phone] Reason for Visit * Reason Onset Date Comments Med Refill 07/22/2023 Encounter Details Date Type Department Care Team (Late st Contact Info) Description 07/22/2023 Refill [facility] [address] [place] [address] Chela Grant CN [address] [place] [address] Social History Tobacco Use Types Packs/Day Years [...] Description 05/03/2024 9:30 AM EDT Procedure Visit [facility] [address] [place] [phone] Chela Grant CNM [address] [place] [address] 06/13/2024 10:30 AM EDT Office Visit [facility] [address] [place] [phone] Jolene Patel FNP [address] [place] [address] documented as of this encounter Visit Diagnoses Not on filedocumented in this encounter Additional Health Concerns Assessment Noted Time PHQ-9 Depression Total Score: 12 024 9:27 AM EST documented as of this encounter Care Teams Director Online Marketing Relationship Specialty Start Date End Date Jolene Patel FNP [address] [place] [phone] PCP - General Family Medicine 08/12/21 documented as of this encounter
--- OUTSIDE RECORDS SUMMARY | 2024-04-25 14:41 | XMS_ITS | Encounter Summary ---
Author Organization [employer] Address [address] [facility] [address] [address] 7[address] [place] [address] Care Team Providers Care Bar And Filler Assembler Name Role Phone Jolene Patel SUPERVISOR PROCESS TESTING Primary Care Provider [phone] Encounter Details Date Type Department Care Team ([facility] st Contact Info) Description 04/10/2023 Orders Only [facility] [address] [place] [address] Terell Sultana MD [address] [place] [address] Social History Tobacco Use Types Packs/Day Years [...] Description 05/03/2024 9:30 AM EDT Procedure Visit [facility] [address] [place] [address] Chela Grant CNM [address] [place] [address] 06/13/2024 10:30 AM EDT Office Visit [address] [address] Jolene Patel FNP [address] [place] [address] documented as of this encounter Visit Diagnoses Not on filedocumented in this encounter Additional Health Concerns Assessment Noted Time PHQ-9 Depression Total Score: 12 024 9:27 AM EST documented as of this encounter Care Teams Bar And Filler Assembler Relationship Specialty Start Date End Date Jolene Patel FNP [address] [place] [address] PCP - General Family Medicine 08/12/21 documented as of this encounter
--- OUTSIDE RECORDS SUMMARY | 2024-04-25 14:41 | XMS_ITS | Encounter Summary ---
Author Organization [employer] Address 75 [facility] 7t [place] [address] Care Team Providers Care Motel Operator Name Role Phone [place] [facility] Primary Care Provider [phone] Reason for Visit * Reason Onset Date Comments Med Refill 06/29/2023 Encounter Details Date Type Department Care Team (Late st Contact Info) Description 06/29/[address] [facility] [address] [place] [address] [facility] [address] [place], [place] [phone] Upper back pain on right side Social History Tobacco Use Types Packs/Day Years [...] PM EST documented as of this encounter Miscellaneous Notes * Telephone Encounter - Missy Dowd LPN - 06/29/2023 4:07 PM EDT Next appointment 09/28/23. * Telephone Encounter - Irina Leal - 06/29/2023 4:05 PM EDT TC from pt requesting medication refill. Medications needing refill : cyclobenzaprine (Flexeril) 5 MG tablet To be sent to: [facility] - [place], [place] - [address] [place] [address] documented in this encounter Plan of Treatment Upcoming Encounters Date Type Department Care Team (Late st Contact Info) Description 05/03/2024 9:30 AM EDT Procedure Visit [facility] [address] [place] [address] Chela Grant CNM [address] [place] [address] 06/13/2024 10:30 AM EDT Office Visit [facility] [address] [place] [address] Jolene Patel FNP [address] [place] [address] documented as of this encounter Visit Diagnoses Diagnosis Upper back pain on right side documented in this encounter Additional Health Concerns Assessment Noted Time PHQ-9 Depression Total Score: 12 024 9:27 AM EST documented as of this encounter Care Teams Motel Operator Relationship Specialty Start Date End Date Jolene Patel FNP [address] [place] [address] PCP - General Family Medicine 08/12/21 documented as of this encounter
--- OUTSIDE RECORDS SUMMARY | 2024-04-25 14:41 | XMS_ITS | Encounter Summary ---
Author Organization [employer] Address 75 [facility] 7t [place] [address] Care Team Providers Care Electric Motor Analyst Name Role Phone Sylva [facility] Primary Care Provider [phone] Reason for Visit * Reason Comments Med Refill Encounter Details Date Type Department Care Team (Late st Contact Info) Description 05/18/2022 Refill [facility] [address] [place] [address] [facility] [address] [place] [address] Upper back pain on right side Social [...] PM EDT documented as of this encounter Plan of Treatment Upcoming Encounters Date Type Department Care Team (Late st Contact Info) Description 05/03/2024 9:30 AM EDT Procedure Visit [facility] [address] [place], [place] [phone] Chela Grant CNM [address] [place] [address] 06/13/2024 10:30 AM EDT Office Visit [facility] [address] [place] [address] Jolene Patel FNP [address] [place] [address] documented as of this encounter Visit Diagnoses Diagnosis Upper back pain on right side documented in this encounter Additional Health Concerns Assessment Noted Time PHQ-9 Depression Total Score: 18 023 3:18 PM EDT documented as of this encounter Care Teams Electric Motor Analyst Relationship Specialty Start Date End Date Jolene Patel FNP [address] [place] [address] PCP - General Family Medicine 08/12/21 documented as of this encounter
[2024-04-25 14:42] LABS: Erythrocyte Sedimentation Rate 2 MM/HR (0-20)
[2024-04-25 17:26] LABS: Alanine Aminotransferase 21 U/L (0-31); Albumin Level 4.4 g/dL (3.5-5.0); Alkaline Phosphatase 60 U/L (39-117); Anion Gap 13 (12-20); Aspartate Amino Transferase 20 U/L (5-31); Bilirubin Direct 0.3 mg/dL (0.0-0.5); Bilirubin Total 0.9 mg/dL (0.0-1.0); Blood Urea Nitrogen 10 mg/dL (9-16); C Reactive Protein < 0.04 mg/dL (< or = 0.50); Calcium 9.4 mg/dL (8.4-10.2); Carbon Dioxide 25 mmol/L (22-29); Chloride 107 mmol/L (96-108); Cholesterol 172 mg/dL (<200); Estimated Glomerular Filt Rate > 60; Glucose Random 71 mg/dL (60-115); HDL Cholesterol 67 mg/dL (>40); LDL Cholesterol Calculated 89 mg/dL (<100); Potassium 4.2 mmol/L (3.3-5.1); Sodium 141 mmol/L (135-145); Total Protein 8.2 g/dL (6.5-8.0); Triglycerides 84 mg/dL (<150)
[2024-05-05 12:23] LABS: Testosterone, Free 101.6 pg/mL (0.1-6.4); Testosterone, Total 418 ng/dL (2-45)
== END 2024-04-25 12:37 | disposition home or self-care (01) ==
LOC: HO.HHCL 12:36
PROVIDERS: Visit Provider Pediatrics
DX: M79.604 Pain in right leg (principal); F64.0 Transsexualism; R74.01 Elevation of levels of liver transaminase levels
CPT/HCPCS: 36415; 80053; 80061; 82248; 84402; 84403; 85027; 85610; 85652; 85730; 86140

== ENCOUNTER 2024-05-03 10:36 | Outpatient (REF) | payer OTHER, SELFPAY ==
[2024-05-03 12:37] LABS: Syphilis Screen Nonreactive (Nonreactive)
[2024-05-03 12:39] LABS: HIV AB/AG Nonreactive (Nonreactive); HIV Num 1 0.05 S/CO (0.00-0.99)
[2024-05-05 18:19] LABS: C. trachomatis RNA TMA NOT DETECTED (NOT DETECTED); N. gonorrhoeae RNA TMA NOT DETECTED (NOT DETECTED)
[2024-05-11 14:49] LABS: Testosterone, Free 63.7 pg/mL (0.1-6.4); Testosterone, Total 284 ng/dL (2-45)
[2024-05-16 14:22] LABS: Trichomonas (NAAT) NOT DETECTED
== END 2024-05-03 10:37 | disposition home or self-care (01) ==
LOC: HO.HHCL 10:36
PROVIDERS: Visit Provider Advanced Practice Midwife
DX: Z11.3 Encounter for screening for infections with a predominantly sexual mode of transmission (principal)
CPT/HCPCS: 36415; 84402; 84403; 86780; 87389; 87491; 87591; 87661; 88175

== ENCOUNTER 2024-08-21 21:29 | Emergency (ER) | payer OTHER, SELFPAY ==
--- NOTE | 2024-08-21 | ECG_ITS ---
Test Reason : CHEST PAIN Blood Pressure : */* mmHG Vent. Rate : 119 BPM Atrial Rate : 119 BPM P-R Int : 124 ms QRS Dur : 82 ms QT Int : 290 ms P-R-T Axes : 61 37 41 degrees QTcB Int : 407 ms Sinus tachycardia Otherwise normal ECG When compared with ECG of 14-Aug-2021 11:15, Vent. rate has increased by 62 bpm Referred By: Generic ED Physician Electronically Signed By: Deny Fisher
--- NOTE | ~2024-08-21 | XR_ITS ---
CLINICAL HISTORY: chough, chest pain 2 view chest x-ray Comparison: CR/SR - XR CHEST 2V - 10/07/22 15:00 EDT Findings: New small patchy opacity at the left lung base. Heart size is normal. No acute fracture. No effusion. IMPRESSION: There may be an early left lung base pneumonia. This document has been electronically signed by: Jayme Sena MD on 08/22/2024 00:27:18
[2024-08-21 22:13] VITALS: BP 142/83; PULSE 123; RESP 18; TEMP 38; O2SAT 98; BMI 39.9
[2024-08-21 22:34] LABS: Hematocrit 42.3 % (37.0-47.0); Hemoglobin 15.1 g/dl (12.0-16.0); Mean Corpuscular HGB Conc 35.7 g/dl (31.0-35.0); Mean Corpuscular Hemoglobin 29.1 pg (27.0-33.0); Mean Corpuscular Volume 81.5 fL (80.0-98.0); NRBC Abs Auto 0.000 X10*3/uL (0.0-0.012); NRBC Pct Auto 0.0 /100WBC (0.0-0.2); Platelet Count 255 X10*3/uL (160-400); Red Blood Count 5.19 X10*6/uL (4.20-5.50); White Blood Count 12.7 X10*3/uL (4.8-10.8)
[2024-08-21 22:48] LABS: Alanine Aminotransferase 15 U/L (0-31); Albumin Level 4.5 g/dL (3.5-5.0); Alkaline Phosphatase 64 U/L (39-117); Anion Gap 13 (12-20); Aspartate Amino Transferase 18 U/L (5-31); Blood Urea Nitrogen 10 mg/dL (9-16); Calcium 9.1 mg/dL (8.4-10.2); Carbon Dioxide 23 mmol/L (22-29); Chloride 107 mmol/L (96-108); Creatinine Clr Calc Pharmacy 133.6; Estimated Glomerular Filt Rate > 60; Magnesium 1.8 mg/dL (1.6-2.6); Potassium 4.0 mmol/L (3.3-5.1); Sodium 139 mmol/L (135-145); Total Protein 7.6 g/dL (6.5-8.0)
[2024-08-21 22:56] LABS: Troponin-I High Sensitivity 12.7 ng/L (<3.5-17.0)
[2024-08-21 23:11] LABS: Resp Syncy Virus RNA Qual PCR NEGATIVE (Negative); SARS COV2 PCR INHOUSE NEGATIVE (Negative)
--- NOTE | 2024-08-22 00:41 | ED_ITS ---
HPI - URI/Sore Throat General Chief Complaint: Upper Respiratory Symptoms Stated Complaint: Cough, chest pain, fever, headaches Time Seen by Provider: 08/22/24 00:38 Source: patient Mode of arrival: ambulatory Limitations: no limitations History of Present Illness ED Provider: Dr. Marylu Dsouza MD elicited complaint: fever (T-max 101?), cough, rhinorrhea and nasal congestion Pertinent past history: asthma Onset (ago): day(s) (2) Consistency: constant and progressively worsening Severity: moderate Pain scale (0-10): 2 Description of mucous: other (Did not look at the sputum) Able to tolerate fluids by mouth: Yes Exacerbating factors: deep breaths and other (Coughing) Relieving factors: OTC cold medicine (DayQuil) Context: sick contacts (Denies) and recent travel (Denies) Associated symptoms: fever, myalgias, rhinorrhea, nasal congestion, cough, chest pain (Tightness), nausea (Denies), vomiting (Denies) and diarrhea (Denies) Treatments prior to arrival: cold medicine Related Data Home Medications ?Medication ?Instructions ?Recorded ?Confirmed cyclobenzaprine 10 mg tablet 10 mg PO BEDTIME 05/03/24 hydroxyzine HCl 25 mg tablet 25 mg PO BEDTIME 05/03/24 testosterone cypionate 200 mg/mL mg IM 05/03/24 intramuscular oil Previous Rx's ?Medication ?Instructions ?Recorded albuterol sulfate 90 mcg/actuation 2 inh inhalation Q4 H PRN shortness 08/22/24 breath activated powder inhaler of breath #1 ea azithromycin 250 mg tablet 250 mg PO DAILY 4 days #4 t abs 08/22/24 prednisone 50 mg tablet 50 mg PO DAILY 5 days #5 tab s 08/22/24 Allergies Allergy/AdvReac Type Severity Reaction Status Date / Time No Known Allergies Allergy Verified 08/21/24 22:17 Review of Systems 2 Review of Systems: As per HPI Yes all other systems are reviewed and are negative [facility] Past Medical History Attestation statement: The following information was validated with the patient. [facility] Narrative: Asthma, daily marijuana use Source: old records reviewed and nursing notes reviewed Medical History PCOS (polycystic ovarian syndrome) Asthma Morbid obesity Surgical History Hx of mastectomy Family History Family History Mother No problems noted. Father Diabetes Social History Social History Alcohol intake: current Alcohol intake frequency: a few times a week Patient Tobacco Use Status: Never used Tobacco Substance Use Type: Marijuana Advance Directives: No Advance Directives Information Provided: Yes Physical Exam 2 Vital Signs: Vital Signs: Last Vital Signs Temp 100.4 F 08/21/24 22:13 Pulse 123 H 08/21/24 22:13 Resp 18 08/21/24 22:13 BP 142/83 H 08/21/24 22:13 Pulse Ox 98 08/21/24 22:13 O2 Del Method Room Air 08/21/24 22:13 BMI result Body Mass Index 39.9 Medical Decision Making Medical Decision Making MDM Narrative: Patient presents today with flu-like symptoms. Differential diagnosis includes influenza, coronavirus, pneumonia, upper respiratory infection, among others. Most importantly, this patient is not in any acute respiratory distress. They have normal oxygen levels at room air. Patient has evidence of left lower lobe pneumonia. Given symptoms of fever and productive cough we will treat as pneumonia with a Z-Larry. Discussed use of Ventolin as needed for coughing fits or wheezing. I have discussed medication and other home therapies that will help the patient and have discussed strict return precautions. Instructed that symptoms may worsen and the patient might need re-evaluation or even hospitalization in the future, but did not show signs of this at the time of discharge. Differential Diagnosis Differential Diagnoses: The differential diagnosis associated with the presentation includes (As above) Admission/Observation Consideration of admission/observation: Escalation of care including admission/observation considered Lab Data [facility] Lab Attestation statement: I reviewed the patient's lab results. 08/21/24 22:28 08/21/24 22:28 Labs: Lab Results 08/21/24 Range/Units 22:28 WBC 12.7 H (4.8-10.8) X10*3/uL RBC 5.19 (4.20-5.50) X10*6/uL Hgb 15.1 (12.0-16.0) g/dl Hct 42.3 (37.0-47.0) % MCV 81.5 (80.0-98.0) fL MCH 29.1 (27.0-33.0) pg MCHC 35.7 H (31.0-35.0) g/dl RDW 12.2 (11.0-16.0) % Plt Count 255 (160-400) X10*3/uL MPV 8.3 L (9.4-12.3) fL Absolute Nucleated RBC 0.000 (0.0-0.012) X10*3/uL Nucleated RBC % (auto) 0.0 (0.0-0.2) /100WBC Sodium 139 (135-145) mmol/L Potassium 4.0 (3.3-5.1) mmol/L Chloride 107 (96-108) mmol/L Carbon Dioxide 23 (22-29) mmol/L Anion Gap 13 (12-20) BUN 10 (9-16) mg/dL Creatinine 0.76 (0.5-1.4) mg/dL Estim Creat Clear Calc 133.6 Estimated GFR > 60 Random Glucose 112 (60-115) mg/dL Calcium 9.1 (8.4-10.2) mg/dL Magnesium 1.8 (1.6-2.6) mg/dL Total Bilirubin 0.6 (0.0-1.0) mg/dL AST 18 (5-31) U/L ALT 15 (0-31) U/L Alkaline Phosphatase 64 (39-117) U/L Troponin I High Sens 12.7 (<3.5-17.0) ng/L Total Protein 7.6 (6.5-8.0) g/dL Albumin 4.5 (3.5-5.0) g/dL Influenza Type A (PCR) NEGATIVE (Negative) Influenza Type B (PCR) NEGATIVE (Negative) RSV RNA Qual (PCR) NEGATIVE (Negative) SARS-CoV-2 RNA (RT-PCR) NEGATIVE (Negative) Independent Interpretation I performed an independent interpretation of an: Plain X-Ray Interpretation: Left lower lobe consolidation Radiology Impression Discussion of test interpretation with radiology: I have reviewed the radiologist's reading. Independent Historian Clinical information obtained from an independent historian. History obtained from or confirmed by: Friend Prescription Management I considered prescription management with: Antibiotic and Other (Albuterol inhaler, steroids) Chronic Conditions Patient?s care impacted by: Other (Asthma) Discharge Plan Discharge Clinical Impression: Left lower lobe pneumonia Qualifiers: Pneumonia type: due to unspecified organism Qualified Code(s): J18.9 - Pneumonia, unspecified organism Patient Disposition: Home, Self-Care Instructions: Community Acquired Pneumonia (ED) Additional Instructions: Take your antibiotic as prescribed until the course is completed. Do not stop this medication early if you start to feel better. Return to the emergency department with a new or worsening symptoms including: Worsening pain in your chest, it worsening difficulty breathing despite your inhaler, inability to tolerate food or drink, any new symptom that concerns you. Call 911 with any medical emergency. Prescriptions: New azithromycin 250 mg tablet 250 mg PO DAILY 4 Days Qty: 4 0RF prednisone 50 mg tablet 50 mg PO DAILY 5 Days Qty: 5 0RF albuterol sulfate 90 mcg/actuation aerosol powdr breath activated 2 inh inhalation Q4H PRN (Reason: shortness of breath) Qty: 1 0RF No Action testosterone cypionate 200 mg/mL oil IM hydroxyzine HCl 25 mg tablet 25 mg PO BEDTIME cyclobenzaprine 10 mg tablet 10 mg PO BEDTIME Stand Alone Forms: Work/School Release Print Language: Belgian
--- OUTSIDE RECORDS SUMMARY | 2024-08-22 00:41 | XMS_ITS | Data Portability ---
Author Organization [facility], [address] Address [address] [place] [address] Care Team Providers Care Ross Lift Operator Name Role Phone [facility] Primary Care Provider Assessment No assessment recorded. Plan of Treatment Reminders Order Date Submit Date Provider Last Modified By Organization Details Last Modified Time Details Appointments None recorded. Lab rapid strep group A, throat 2022 023 [facility], [address] [place], [address], 3 18:38:49 Referral None recorded. Procedures None recorded. Surgeries None recorded. Imaging XR, hand, 3 or more view 2022 023 [email or web address] [facility], [address] [place] [address], [address], 3 10:57:40 Medication Orders naproxen 500 mg tablet 2022 023 LIDIA Not available 3 10:56:33 Augmentin 875 mg-125 mg tablet 2022 023 [email or web address] Not available 3 10:08:28 fexofenad ine-pseud oephedrin e ER 180 mg-240 mg tablet,ex t.release 24 hr 2022 023 [email or web address] Not available 3 18:40:25 prednison e 20 mg tablet 2022 023 [email or web address] Not available 10:08:12 Patient TargetsNo targets recorded. Patient Instructions Encounter Date Encounter Id Patient Instructions Last Modified By Organization Details Last Modified Time 06/11/2022 [id number] earache: care instructions Not available 06/11/2022 18:38:49 [...] taking a prescription pain medicine, take an gkbx-pxj-osoteby medicine, such as acetaminophen (Tylenol), ibuprofen (Advil, [...] of antibiotics. Not available 06/11/2022 18:38:46 09/19/2022 [id number] learning about rice (rest, ice, compression, and [...] your doctor if you can take an bcvf-tgj-mgtglrf medicine. Prop up your hand on pillows [...] Analyte Normal = Negati ve Not Available [id number] [place], [address], 06/11/2022 18:11:10 06/12/192023 rapid strep group A, throa t Unknown Analyte negati ve Not Available [id number] [facility], [place], [address], 06/11/2022 18:11:10 09/20/19 23 09/19/2022 XR, hand, 3 or more view No observ ation record ed. [email or web address] [facility] [address] [facility], [place], [address], 09/19/2022 12:33:46 Result Notes None recorded. Problems Name Problem SNOMED Code Status Onset Date Resolution Date Notes Provider Name and Address Organization Details Recorded Time Depressive disorder 72065703 Active 023 NICA rivera [place] - [facility] 3 18:10:12 Asthma [id number] Active 023 NICA rivera [place] - [facility] 3 18:10:17 Problem Notes None recorded. Medical Equipment None Reported. [...] Recorded Body height Body mass index (BMI) [Percentile] Per age and sex Body mass index (BMI) Body weight Oxygen saturation Oxygen saturation in Arterial blood by Pulse oximetry Heart rate Respiratory rate Body temperature Systolic And Diastolic Provider Name and Address Organization Details Last Updated DateTime 3 160.02 cm 95 % 31.7 kg/m2 67361.0 3 g 100 % 100 % 77 /min 16 /min 96.8 [degF] 132/82 mm[Hg] NICA BENSON [facility] [employer] 3 18:08:24 Date Recorded Body height Body mass index (BMI) [Percentile] Per age and sex Body mass index (BMI) Body weight Respiratory rate Heart rate Oxygen saturation Oxygen saturation in Arterial blood by Pulse oximetry Body temperature Systolic And Diastolic Provider Name and Address Organization Details Last Updated DateTime 3 160.02 cm 97 % 34.7 kg/m2 31793.1 g 16 /min 98.9 /min 100 % 100 % 98.13 [degF] 130/80 mm[Hg] SUKHDEEP HERNANDEZVEL CO [employer] 3 10:12:15 Social History Question Answer Notes LastModified by [employer] Details LastModified Time Tobacco Smoking Status Never Smoker NICA rivera [employer] 06/11/2022 18:10:57 Have You Recently Traveled Abroad? No Information not available 06/11/2022 Sex: Unknown Functional Status Question Answer Note LastModified by [employer] Details LastModified Time Do you use any illicit or recreational drugs? No Information not available 06/11/2022 What is your level of alcohol consumption? Occasional Information not available 06/11/2022 Mental Status None recorded. Family History Relationship [...] [facility] 09/19/2022 10:09:03 pneumococcal conjugate PCV 7 10/27/200 3 completed SUKHDEEP DRINKWINE null, [place] - [...] SNOMED-CT Code Diagnosis ICD10 Code Diagnosis Note [id number] [place] [address] [facility] [address] [place] [address] 06/11/2022 17:34:11 06/11/2022 18:40:37 Acute right otitis media 386046803 H66.91 [id number] [place] [id number] [facility] [address] [place] [address] 09/19/2022 08:26:46 09/19/2022 10:57:40 Pain in right hand 3127384031 [address] M79.641 Health Concerns Section Related Observation LastModified by Organization Detai ls LastModified Time None Recorded Concern Status LastModified by Organization Details LastModified Time None Recorded Advance Directives Directive None Recorded Payers Insurance Date Sequence Insurance Name Policy Number Policy Nicole Covered Member ID Nicole Member ID Guarantor Name 11/19/2022 1 [facility] (MEDICAID REPLACEMENT - HMO) [id number] Cinthia Avila [id number] Cinthia Avila 06/11/2022 1 [facility] (MEDICAID HMO) [id number] Cinthia Avila [id number] Cinthia Avila 11/19/2022 1 [facility] Cinthia Avlia [id number] Cinthia Avila 11/19/2022 2 [place] [facility] Cinthia Avila [id number] Cinthia Avila Notes Date Note Type Note [...] Mamadou Keyes NP [address] [place], [address], [facility] 06/11/2022 18:39:24 09/19/2022 text/html Wrist/Hand Injur [...] Mamadou Keyes NP [address] [place], [address], [place] [employer] [facility] 09/19/2022 10:57:09 OBGyn Episode No OBEpisode recorded.
[2024-08-22] MEDS: Albuterol Sulfate 90 MCG 8 GM INHALER 2 PUFF INHALE (02:42)
[2024-08-22 02:49] VITALS: BP 137/73; PULSE 109; RESP 20; TEMP 37.2; O2SAT 96
[2024-08-22 02:59] VITALS: BP 137/73; PULSE 109; RESP 20; TEMP 37.2; O2SAT 96
== END 2024-08-22 03:00 | disposition home or self-care (01) ==
PROVIDERS: Emergency Provider Emergency Medicine; PCP Registered Nurse
DX: J18.9 Pneumonia, unspecified organism (principal); R05.9 Cough, unspecified; R07.89 Other chest pain; R50.9 Fever, unspecified; R51.9 Headache, unspecified; R09.81 Nasal congestion; J34.89 Other specified disorders of nose and nasal sinuses; Z03.818 Encounter for observation for suspected exposure to other biological agents ruled out; Z79.899 Other long term (current) drug therapy
CPT/HCPCS: 71046; 80053; 83735; 84484; 85027; 87637; 93005; 99284

== ENCOUNTER → 2024-08-21 21:35 | Outpatient (BNV) | payer OTHER, SELFPAY | PROVIDERS: Emergency Provider Emergency Medicine; PCP Registered Nurse; Visit Provider Internal Medicine Cardiovascular Disease | DX: R00.0 Tachycardia, unspecified (principal) | CPT/HCPCS: 93010 ==

== ENCOUNTER → 2024-08-21 22:36 | Outpatient (BNV) | payer OTHER, SELFPAY | PROVIDERS: Emergency Provider Emergency Medicine; PCP Registered Nurse; Visit Provider Radiology Diagnostic Radiology | DX: R05.9 Cough, unspecified (principal); R07.9 Chest pain, unspecified | CPT/HCPCS: 71046 ==

== ENCOUNTER 2024-10-20 07:52 | Outpatient (REF) | payer OTHER, SELFPAY ==
--- OUTSIDE RECORDS SUMMARY | 2024-10-20 07:56 | XMS_ITS | Encounter Summary ---
Author Organization [employer] Address 75 [facility] 7 [place] [address] Care Team Providers Care Contract Negotiation Specialist Name Role Phone [facility] Primary Care Provider [phone] Reason for Visit * Reason Onset Date Comments Med Refill 06/29/2023 Encounter Details Date Type Department Care Team (Late st Contact Info) Description 06/29/2023 Refill [facility] [address] [place] [address] [facility] [address] [place] [address] Upper back pain on right side Social [...] 5 MG tablet To be sent to: [facility] - [place], [place] - [address] [place] [address] documented in this encounter Plan of Treatment Upcoming Encounters Date Type Department Care Team (Late st Contact Info) Description 11/14/2024 9:30 AM EDT Office Visit [facility] [address] [place] [address] HarbortonJolene burgos FNP [address] [place] [address] documented as of this encounter Visit Diagnoses Diagnosis Upper back pain on right side documented in this encounter Additional Health Concerns Assessment Noted Time PHQ-9 Depression Total Score: 12 024 9:27 AM EST documented as of this encounter Care Teams Contract Negotiation Specialist Relationship Specialty Start Date End Date Jorge KIARA Fernández [address] [place] [address] PCP - General Family Medicine 08/12/21 documented as of this encounter
--- OUTSIDE RECORDS SUMMARY | 2024-10-20 07:56 | XMS_ITS | Encounter Summary ---
Author Organization [email or web address] Address 75 [facility] 7 [place] [address] Care Team Providers Care Cardiac Nurse Specialist Name Role Phone Jolene Patel GAS METER MECHANIC Primary Care Provider [phone] Reason for Visit * Reason Onset Date Comments Med Refill 07/22/2023 Encounter Details Date Type Department Care Team (Late st Contact Info) Description 07/22/2023 Refill [facility] [address] [place], [place] [phone] Chela Grant CNM [address] [place] [address] Social History Tobacco Use Types Packs/Day Years [...] Description 11/14/2024 9:30 AM EDT Office Visit [facility] [address] [place] [address] Jolene Patel FNP [address] [place] [address] documented as of this encounter Visit Diagnoses Not on filedocumented in this encounter Additional Health Concerns Assessment Noted Time PHQ-9 Depression Total Score: 12 024 9:27 AM EST documented as of this encounter Care Teams Cardiac Nurse Specialist Relationship Specialty Start Date End Date Jolene Patel FNP [address] [place] [address] PCP - General Family Medicine 08/12/21 documented as of this encounter
--- OUTSIDE RECORDS SUMMARY | 2024-10-20 07:56 | XMS_ITS | Encounter Summary ---
Author Organization [employer] Address [address] [facility] [address] [place] [address] Care Team Providers Care Business Machine Mechanic Name Role Phone Jolene Patel MECHANICAL PRODUCT ENGINEER Primary Care Provider [phone] Encounter Details Date Type Department Care Team ([facility] st Contact Info) Description 04/10/2023 Orders [address] [facility] [address] [place], [place] [phone] Terell Sultana MD [address] [place] [address] Social History Tobacco Use Types Packs/Day Years [...] Description 11/14/2024 9:30 AM EDT Office Visit [facility] [address] [place] [address] Jolene Patel FNP [address] [place] [address] documented as of this encounter Visit Diagnoses Not on filedocumented in this encounter Additional Health Concerns Assessment Noted Time PHQ-9 Depression Total Score: 12 024 9:27 AM EST documented as of this encounter Care Teams Business Machine Mechanic Relationship Specialty Start Date End Date Jolene Patel FNP [address] [place] [address] PCP - General Family Medicine 08/12/21 documented as of this encounter
--- OUTSIDE RECORDS SUMMARY | 2024-10-20 07:56 | XMS_ITS | Encounter Summary ---
Author Organization [employer] Address 75 [facility] 7t [place] [address] Care Team Providers Care Rotary Soil Stabilizer Name Role Phone Jorge [facility] Primary Care Provider [phone] Reason for Visit * Reason Comments Med Refill Encounter Details Date Type Department Care Team ([facility] st Contact Info) Description 04/22/2023 Refill [facility] [address] [place] [address] Chela Grant, [facility] [address] [place] [address] Social History Tobacco Use Types Packs/Day Years [...] Description 11/14/2024 9:30 AM EDT Office Visit [facility] [address] [place] [address] Jolene Patel FNP [address] [place] [address] documented as of this encounter Visit Diagnoses Not on filedocumented in this encounter Additional Health Concerns Assessment Noted Time PHQ-9 Depression Total Score: 12 024 9:27 AM EST documented as of this encounter Care Teams Rotary Soil Stabilizer Relationship Specialty Start Date End Date Jolene Patel FNP [address] [place] [address] PCP - General Family Medicine 08/12/21 documented as of this encounter
--- OUTSIDE RECORDS SUMMARY | 2024-10-20 07:56 | XMS_ITS | Clinical Summary ---
Author Organization [employer] Address [address] [facility] [address] [place] [address] Care Team Providers Care Staff Engineer Name Role Phone Jolene Patel IMPLEMENT MECHANIC Primary Care Provider [phone] Allergies No known active allergies Medications * [...] USE TO CHECK BLOOD PRESSURE TWICE DAILY 023 Active omeprazole (PriLOSEC) [address] capsule Take 20 mg by mouth in the morning. 023 Active hydrOXYzine HCl (Atarax) 25 MG tabletIndicati ons:Recurrent major depressive disorder, remission status unspecified (CMS/HCC) TAKE 1 TABLET BY MOUTH EVERY 6 HOURS NEEDED FOR ANXIETY 120 tablet 024 Active fluticasone (Flonase) 50 MCG/ACT nasal spray Administer 2 sprays into each nostril Once per day. Shake gently. Before first use, prime pump. After use, clean tip and replace cap. 16 g 2 024 Active cyclobenzaprin e (Flexeril) 5 MG tabletIndicati [...] clean site. 100 each 1 025 Active topiramate (Topamax) 25 MG tabletIndicati ons:Class 3 severe obesity due to excess calories with serious comorbidity and body mass index (BMI) of 40.0 to 44.9 in adult Take 1 tablet (25 mg) by mouth before evening meal. 30 tablet 11 025 2025 Active phentermine 15 MG capsuleIndicat ions:Class 3 severe obesity due to excess calories with serious comorbidity and body mass index (BMI) of 40.0 to 44.9 in adult TAKE 1 CAPSULE BY MOUTH BEFORE BREAKFAST 30 capsule 025 Active testosterone cypionate (Depo-Testoste karely) 200 MG/ML injection INJECT 0.4 ML (80 MG) SUBCUTANEOUSLY ONCE A WEEK DIRECTED. DISCARD VIAL AFTER EACH USE 4 mL 1 025 Active Syringe, Disposable, (B-D SYRINGE LUER-MARIANO 1CC) 1 ML misc USE TO ADMINISTER MEDICATION 12 each 025 Active Needle, Disp, (BD Disp [place]) 25G X 5/8 misc USE 1 PER WEEK TO INJECT MEDICATION 12 each Active Syringe/Needle , Disp, (B-D 3CC LUER-MARIANO SYR 92QZ3-3/2) 22G X 1-1/2 3 ML misc USE TO DRAW UP MEDICATION 12 each Active Syringe, Disposable, (B-D SYRINGE LUER-MARIANO 1CC) 1 ML misc USE TO ADMINISTER MEDICATION 12 each 025 2024 Discontinued(R eorder (will not trigger notification to Pharmacy)) Needle, Disp, (BD Disp [place]) 25G X 5/8 misc USE 1 PER WEEK TO INJECT MEDICATION 12 each 025 2024 Discontinued(R eorder (will not trigger notification to Pharmacy)) Syringe/Needle , Disp, (B-D 3CC LUER-MARIANO SYR 43NX8-8/2) 22G X 1-1/2 3 ML misc USE TO DRAW UP MEDICATION 12 each 025 2024 Discontinued(R eorder (will not trigger notification to Pharmacy)) testosterone cypionate (Depo-Testoste karely) 200 MG/ML injection INJECT 0.4 ML (80 MG) SUBCUTANEOUSLY ONCE A WEEK DIRECTED. Discard vial after each use 4 mL 1 025 2024 Discontinued phentermine 15 MG capsuleIndicat ions:Class 3 severe obesity due to excess calories with serious comorbidity and body mass index (BMI) of 40.0 to 44.9 in adult TAKE 1 CAPSULE BY MOUTH BEFORE BREAKFAST 30 capsule 025 2024 Discontinued(R eorder (will not trigger notification to Pharmacy)) Active Problems Problem Noted Date Diagnosed Date Meralgia paresthetica of right side 02/18/2024 Anxiety 10/13/2023 Gender dysphoria in adult 12/24/2022 MDD (major depressive disorder) 05/19/2022 Overview (08/27/2022): Fluoxetine 40mg daily Assessment & Plan (08/27/2022 8:36 AM EDT): Continue current regimen Follow up with therapist as scheduled Assessment & Plan (08/13/2022 12:58 PM EDT): Assessment: Cintiha was engaged with active reflective listening and [...] and Medication management. At this time Cinthia Avila meets criteria for Visit Diagnoses: Problem List Items Addressed This Visit Other MDD (major depressive disorder) Patient ready to address current needs Yes Strengths include willing to engage in MH services PLAN: 1. Follow up with [facility]: Not recommended for follow-up 2. Patient goal is engage in MH service to learn to cope with sxs. 3. Behavioral Recommendations a. Ind. Therapy b. Med. Management c. Use of coping Skills Assessment & Plan (07/22/2022 6:24 AM EDT): INCREASE to 40mg daily Follow as scheduled with [facility] Contact HC if sx worsen or experiencing thoughts of SI or self harm. Pt has N crisis contact information Tendonitis 03/25/2022 Assessment & Plan (03/25/2022 1:16 PM EST): Supportive caregivem; Ibuprophen, stretching, massage, and good fitting shoes. Call for PT referral if not improved in 10 days. Chronic bilateral thoracic back pain 02/27/2022 Asthma 01/28/2022 Overview (02/27/2022): Only uses albuterol when sick, otherwise asx Hirsutism 01/28/2022 Polycystic ovary syndrome 01/28/2022 Overview (08/27/2022): Dx in adolescence by endocrinology A1c 4.7 11/2021 Lipids WNL 11/2021 Metformin 500mg XR Continuous use OCP Assessment & Plan (08/27/2022 8:35 AM EDT): Continue current regimen ACHES reviewed Assessment & Plan (07/22/2022 6:22 AM EDT): Continue continuous use OCP START metformin to treat insulin resistance. Strong [...] obesity 01/28/2022 02/27/2022 Oligomenorrhea 01/28/2022 02/27/2022 Encounters * This document contains information received from the source organization and may not represent a complete record from that organization. Date Type Department Care Team Description 10/10/2024 Refill [facility] [address] [place] [address] Deejay Sandoval CNM 2024 Refill [facility] [address] [place] [address] Deejay Sandoval CNM 10/02/2024 Refill [facility] [address] [place] [address] Jolene Patel FNP Class 3 severe obesity due to excess calories with serious comorbidity and body mass index (BMI) of 40.0 to 44.9 in adult 09/18/[address] [address] Jolene Patel FNP Provider remote 09/1909/12/2024 Patient Outreach [address] [address] Jolene Patle FNP Care Coordination (CHW outreach for SDOH food needs-referral completed /) 09/12/2024 Patient Outreach [address] [address] Jolene Patel FNP Pre-visit Planning (SDOH Screening positive and Tobacco screening negative) 08/21/2024 Orders Only GENERIC EXTERNAL DATA DEPARTMENT Provider, Generic External Data 08/21/[address] [address] Jolene Patel FNP Class 3 severe obesity due to excess calories with serious comorbidity and body mass index (BMI) of 40.0 to 44.9 in adult from Last 3 Months Immunizations Immunization Administration Dates Next Due DTaP, 5 pertussis antigens 02/02/2007,,04/11/2003,02/11,2002 HPV 9-Valent 10/14/2015,03/25/2015,10/10/2014 Hep A, ped/adol, 2 dose 04/21/2015,10/10/2014 Hep B, Adolescent or Pediatric 07/11/2003,2003,2002 Hep B, adult 04/18/2023 Hib ([facility]) 02/26/2004, 4,02/11/2003,12/10 IPV 02/02/2007, 4,02/11/2003,12/10 Influenza injectable quadriv alent preservative free 11/17/2022,02/18/2022,01/24/2020,12/26,11/21/2017,03/03/2016,03/25/2015 Influenza, IIV3, injectable 02/11/2009 Influenza, Split (incl. alvaro fied surface antigen) 01/22/2013 Influenza, seasonal, injecta ble, preservative free 11/25/2023 MMR 02/02/2007,10/24/2003 Meningococcal MCV4P ACYW-135 12/26/2018,10/11/19 15 [...] What is your housing situation today? I am not s ure 09/12/[address] you li ve. Do you have problems with any of the following? None of the above 09/12/2024 Food Insecurity Answer Date Recorded Within the past 12 months, y ou worried that your food would run out before you got money to buy more: Often true 09/12/2024 Within the past 12 months,th e food you bought just didn't last and you didn't have enough money to get more: Often true Transportation Answer Date Recorded In the past 12 months, has l ack of transportation kept you from medical appts, meetings, work or from getting things needed for daily living? No 09/12/2024 Utilities Answer Date Recorded In the past 12 months, has t he electric, gas, oil or water company threatened to shut off services in your home? No 09/12/2024 Depression Answer Date Recorded Patient Health Questionnaire-2 Score 1 10/13/2023 Internet Access Answer Date Recorded Internet Access Q1 Yes 09/12/2024 Internet Access Q2 Not on file 09/12/2024 Comments No Intention Date Recorded No desire to become (finding) 0 05/03/2024 Sex and Gender Information Value Date Recorded Sex Assigned at Female 12/14/2021 10:17 AM EDT Legal Sex Female 10:17 AM EDT Gender Identity Male 01/05/2023 3:09 PM EST Sexual Orientation Lesbian 02/16/2022 3: 46 PM EST Last Filed Vital Signs Vital Sign Reading Time Taken Comments Blood Pressure 133/87 05/03/2024 9:51 AM EDT Pulse 83 05/03/2024 9:51 AM EDT Temperature 36.7 C (98 F) 05/03/2024 9:51 AM EDT Respiratory Rate 16 05/03/2024 9:51 AM EDT Oxygen Saturation 98% 05/03/2024 9:51 AM EDT Inhaled Oxygen Concentration - - Weight 103 kg (227 lb 9.6 oz) 05/03/2024 9:51 A M EDT Height 160 cm (5' 3 ) 02/18/2024 11:13 AM EST Body Mass Index 40.32 02/18/2024 11:13 AM EST Plan of Treatment Upcoming Encounters Date Type Department Care Team (Late st Contact Info) Description 11/14/2024 9:30 AM EDT Office Visit [facility] [address] [place] [address] [facility] [address] [place] [address] Health Maintenance Due Date Last Done Comments Disability Screening 2002 Alcohol/Substance Use Screening 2014 Dental Prophylaxis 11/03/2015 05/02/2015 Meningococcal B Vaccine (1 of 2 - Standard) 2018 Pneumococcal Vaccine: Pediatrics (0 to 5 Years) and At-Risk Patients (6 to 49) Years (1 of 2 - PCV) 2021 02/26/2004, 04/11/2003, 02/11/2003, Additional history exists Dental Oral Exam 01/01/2024 06/30/2023, 05/02/2015 Dental X-Ray: Bitewings 06/30/2024 06/30/2023, 05/01 DTaP/Tdap/Td Vaccines (7 - Td or Tdap) 10/10/2024 10/10/2014, 02/02/2007, 04/16/2004, Additional history exists Depression Screening 10/12/2024 10/13/2023, 10/13/19 24 COVID-19 Vaccine ( season) 2024 02/16/2023, 04/24/2021, 01/20/2021 Influenza Vaccine (#1) 2024 , 11/17/2022, 02/18/2022, Additional history exists Tobacco Screening 02/17/2025 02/18/2024 Chlamydia and Gonorrhea Screening 05/03/2025 05/03/2024, 04/07/2023, 11/27/2021, Additional history exists Family Planning (PISQ) 05/03/2025 05/03/2024 Pap Smear 05/03/2025 05/03/2024 SDOH Screening 09/12/2025 09/12/2024 Dental X-Ray: Full Mouth 06/30/2026 06/30/2023 Lipid Panel 04/25/2029 04/25/2024, 11/27/2021 Zoster Vaccines (1 of 2) 2052 RSV Patients and Patients Aged 60 years or older (1 - 1-dose 75+ series) 2077 HIB Vaccines Completed 02/26/2004, 03/18, 02/11/2003, Additional history exists IPV Vaccines Completed 02/02/2007, 06/15, 02/11/2003, Additional history exists Hepatitis A Vaccines Completed 04/21/2015, 10/11/19 15 HPV Vaccines Completed 10/14/2015, 10/2015, 10/10/2014 Meningococcal Vaccine Completed 12/26/2018, 015 Hepatitis B Vaccines Completed 04/18/2023, 07/11/2003, 04/11/2003, Additional history exists Hepatitis C Screening Discontinued 12/19/2023, 024 HIV Screening Discontinued 05/03/2024, 11/27/2021 RSV under 20 months Aged Out No longe r eligible based on patient's age to complete this topic Rotavirus Vaccines Aged Out No longer eligible based on patient's age to complete this topic Procedures Procedure Name Priority Date/Time Associated Diagnosis Comments XR CHEST 2 VIEWS Routine 08/22/2024 12:2 7 AM EDT HIGH SENSITIVITY TROPONIN I Routine 08/21/2024 10:28 PM EDT MAGNESIUM Routine 08/21/2024 10:28 PM EDT COMPREHENSIVE METABOLIC PANEL Routine 08/21/2024 10:28 PM EDT CBC Routine 08/21/2024 10:28 PM EDT SARS COV2/INFLUENZA A/B AND RSV RNA QL NAAT Routine 08/21/2024 10:28 PM EDT HIV 1/2 ANTIGEN/ANTIBODY, FOURTH GENERATION W/RFL Routine 05/03/2024 10:40 AM EDT Screening examination for venereal disease PAP SMEAR Routine 05/03/2024 9:58 AM EDT Cervical cancer screening CHLAMYDIA/N. GONORRHOEAE AND T. VAGINALIS RNA, QUAL,TMA Routine 05/03/2024 9:58 AM EDT Screening examination for venereal disease LIPID PANEL, STANDARD Routine 04/25/2024 12:40 PM EDT Right leg pain Gender dysphoria in adult HEPATITIS PANEL, GENERAL Routine 12/19/2023 12:03 PM EST Transaminitis INTRAORAL - COMPLETE SERIES OF RADIOGRAPHIC IMAGES Routine 06/30/2023 3:00 PM EDT Encounter for dental examination Dental plaque Dental calculus PERIODIC ORAL EVALUATION - ESTABLISHED PATIENT Routine 06/30/2023 3:00 PM EDT Encounter for dental examination Dental plaque Dental calculus PROPHYLAXIS - CHILD Routine 05/02/2015 1 2:00 AM EDT from Last 3 Months or Most Recently Relevant to Health Maintenance Results * XR Chest 2 Views (08/22/2024 12:27 AM EDT) Anatomical Region Laterality Modality Chest Radiographic Jessy ging 08/22/2024 12:2 7 AM EDT Narrative 08/22/2024 12:29 AM EDT [address] [address] XRay Report Signed Patient: Cinthia Avila MR#: [id number] 67 : 2000 Acct:[id number] Age/Sex: 23 / F ADM Date: 08/21/24 Loc: HO.ED Attending Dr: Ordering Physician: Generic ED Physician Date of Service: 08/21/24 Procedure(s): XR chest 2V Accession Number(s): [id number] cc: Generic ED Physician; [facility] CLINICAL HISTORY: chough, chest pain 2 view chest x-ray Comparison: CR/SR - XR CHEST 2V - 10/07/22 15:00 EDT Findings: New small patchy opacity at the left lung base. Heart size is normal. No acute fracture. No effusion. IMPRESSION: There may be an early left lung base pneumonia. This document has been electronically signed by: Jayme Sena MD on 08/22/2024 00:27:18 Dictated By: Jayme Sena MD Signed By: <Electronically signed by Jayme Sena MD in OV> 08/22/24 0028 DD/ 0027 TD/TT: 08/22/24 0027 Order Processing Manager: Procedure Note Donotuseinterpreter, Image - 08/22/[address] [address] XRay Report Signed Patient: Todd AvilaR#: [id number] 67 : 2000Acct:[id number] Age/Sex: 23 / FADM Date: 08/21/24 Loc: HO.ED Attending Dr: Ordering Physician: Generic ED Physician Date of Service: 08/21/24 Procedure(s): XR chest 2V Accession Number(s): [id number] cc: Generic [facility]IN[facility] HISTORY: chough, chest pain 2 view chest x-ray Comparison: CR/SR - XR CHEST 2V - 10/07/22 15:00 EDT Findings: New small patchy opacity at the left lung base. Heart size is normal. No acute fracture. No effusion. IMPRESSION: There may be an early left lung base pneumonia. This document has been electronically signed by: Jayme Sena MD on 08/22/2024 00:27:18 Dictated By: Jayme Sena MD Signed By: <Electronically signed by Jayme Sena MD in OV> 08/22/2427 DD/ TD/TT: 08/22/2426 Order Processing Manager: [facility] External Provider IMG XR PROCEDURES Final Result * High Sensitivity Troponin I (08/21/2024 10:28 PM EDT) [facility] TROPONIN I HIGH SENSITIVITY 12.7 <3.5 - 17.0 ng/L [facility] Comment:The Quinn high sens itivity Troponin-I results should beused in conjunction with other diagnostic information suchas ECG, clinical observations and information, and patientsymptoms to aid in the diagnosis of SC. 08/21/2024 10:2 8 PM EDT 08/21/2024 10:32 PM EDT Generic External Data Provider LAB BLOOD ORDERAB LES Final Result [facility] [address] [place] [phone] * SARS-CoV-2 RNA, Influenza A/B, and RSV RNA, Ql NAAT (08/21/2024 10:28 PM EDT) [facility] Influenza A PCR NEGATIVE Negative [facility] Influenza B PCR NEGATIVE Negative [facility] Resp Syncy Virus RNA Qual PCR NEGATIVE Negative [facility] SARS COV2 PCR NEGATIVE Negative [facility] Comment:All test results mus t be correlated with clinical findings.Negative results do not preclude SARS-CoV2, influenza Avirus, influenza B virus and/or RSV infectionand should not be used as the sole basis for treatment orother patient management decisions. Negative results must becombined with clinical observations, patient history, andepidemiological information.This test has not been evaluated for monitoring treatment ofinfection.This test has been authorized by the FDA under an EmergencyUse Authorization (EUA) for use by authorized laboratories.Testing performed on the G3 GeneXpert utilizingreal-time RT-PCR.All SARS CoV2 and positive influenza A/B results arereported to [facility]. 08/21/2024 10:2 8 PM EDT 08/21/2024 10:32 PM EDT us Generic External Data Provider LAB MICROBIOLOGY - GENERAL ORDERABLES Final Result [facility] [address] [place] [phone] * (ABNORMAL) CBC (08/21/2024 10:28 PM EDT) White Blood Count 12.7(H) 4.8 - 10.8 X10*3/uL [facility] Red Blood Count 5.19 4.20 - 5.50 X10*6/uL [facility] Hemoglobin 15.1 12.0 - 16.0 g/dl [facility] Hematocrit 42.3 37.0 - 47.0 % [facility] Mean Corpuscular Volume 81.5 80.0 - 98.0 fL [facility] Mean Corpuscular Hemoglobin 29.1 27.0 - 33.0 pg [facility] Mean Corpuscular HGB Conc 35.7(H) 31.0 - 35.0 g/dl [facility] Red Cell Distribution Width 12.2 11.0 - 16.0 % [facility] Platelet Count 255 160 - 400 X10*3/uL [facility] Mean Platelet Volume 8.3(L) 9.4 - 12.3 fL [facility] NRBC Pct Auto 0.0 0.0 - 0.2 /100WBC [facility] NRBC Abs Auto 0.000 0.0 - 0.012 X10*3/uL [facility] 08/21/2024 10:2 8 PM EDT 08/21/2024 10:32 PM EDT Generic External Data Provider LAB BLOOD ORDERAB LES Final Result Performing Organization Address [facility]/ZIP Co de Phone Number [facility] [address] [place] [phone] * Magnesium (08/21/2024 10:28 PM EDT) Pathologist [facility] Magnesium 1.8 1.6 - 2.6 mg/dL [facility] 08/21/2024 10:2 8 PM EDT 08/21/2024 10:32 PM EDT Generic External Data Provider LAB BLOOD ORDERAB LES Final Result Performing Organization Address [facility] de Phone Number [facility] [address] [place] [phone] * Comprehensive Metabolic Panel (08/21/2024 10:28 PM EDT) Sodium 139 135 - 145 mmol/L [facility] Potassium 4.0 3.3 - 5.1 mmol/L [facility] Chloride 107 96 - 108 mmol/L [facility] Carbon Dioxide 23 22 - 29 mmol/L [facility] Anion Gap 13 12 - 20 [facility] Urea Nitrogen (BUN) 10 9 - 16 mg/dL [facility] Creatinine, Serum 0.76 0.5 - 1.4 mg/dL [facility] Creatinine Clr Calc Pharmacy 133.6 [facility] Comment:Provided height and weight: 160.02 cm,102.149 kg.eGFR (calculated from the MDRD study equation) and eCrCl(calculated from the Cockcroft-Gault equation) are based ondifferent parameters and may not yield comparable results.If eCrCl result is absurd, please check patient'sheight/weight. Estimated Glomerular Filt Rate >60 [facility] Comment:Chronic Kidney Disea se: Estimated GFR < 60 mL/min/1.48s1Qdxpok Kidney Disease: Estimated GFR < 15 mL/min/1.73m2 Glucose 112 60 - 115 mg/dL [facility] Calcium 9.1 8.4 - 10.2 mg/dL [facility] Bilirubin, Total 0.6 0.0 - 1.0 mg/dL [facility] Aspartate Amino Transferase 18 5 - 31 U/L [facility] Alanine Aminotransferase 15 0 - 31 U/L [facility] Total Protein 7.6 6.5 - 8.0 g/dL [facility] Albumin Level 4.5 3.5 - 5.0 g/dL [facility] Alkaline Phosphatase 64 39 - 117 U/L [facility] 08/21/2024 10:2 8 PM EDT 08/21/2024 10:32 PM EDT us Generic External Data Provider LAB BLOOD ORDERAB LES Final Result [facility] [address] [place] [phone] * HIV-1/2 Antigen and Antibodies, Fourth Generation, with Reflexes (05/03/2024 10:40 AM EDT) HIV AB/AG Nonreactive Nonreactive [facility] Comment:HIV-1 p24 Ag and/or HIV-1/HIV-2 Ab not detected.A test result that is nonreactive does not exclude thepossibility of exposure to or infection with HIV-1 and/orHIV-2. Nonreactive results in this assay for individualswith prior exposure to HIV-1 and/or HIV-2 may be due toantigen and antibody levels that are below the limit ofdetection of this assay.The [employer] HIV Ag/Ab Combo assay result andsupplemental assay results should be interpreted inconjunction with the patient's clinical presentation,history and other laboratory results. If the results areinconsistent with clinical evidence, additional testing issuggested to confirm the result. Blood Venous blood specimen / Unknown 05/03/2024 10:40 AM EDT 05/03/2024 11:19 AM EDT Deejay Rudy [facility] LAB BLOOD ORDERABLES Lisseth joseph Result [facility] [address] [place], [place] [phone] * STI testing add on (NG, CT, Trich) (05/03/2024 9:58 AM EDT) Trichomonas (NAAT) NOT DETECTED [facility] Comment:REFERENCE RANGE: NOT DETECTEDThe analytical performance characteristics of thisassay, when used to test SurePath(TM) specimens have beendetermined by [employer]. The modifications havenot been cleared or approved by the FDA. This assay hasbeen validated pursuant to the CLIA regulations and isused for clinical purposes.For additional information, please refer tohttps://education.[employer]ike/faq/XZV033(This link is being provided for information/educational purposes only.)For additional information, please refer tohttp://education.[employer]/faq/Trichomonastma(This link is being provided for informational/educational purposes only.)THIS TEST PERFORMED AT:[employer] [address] [phone] DIRECTOR: MELBA HULL MD CTNG Ref Lab NOT DETECTED NOT DETECTED [facility] NG Ref Lab NOT DETECTED NOT DETECTED [facility] ThinPrep vial Cervix uteri structure / Unknown 05/03/2024 9:58 AM EDT 05/04/2024 1:46 PM EDT Narrative [facility] - 05/16/2024 2:22 PM EDT Collection Date: [id number] by: VIJAYA Saenz: Cervix Deejay Sandoval CNM LAB CYTOLOGY ORDERABLES F inal Result [facility] [address] [place] [phone] * Pap Smear (05/03/2024 9:58 AM EDT) Swab 05/03/2024 9:58 AM EDT 05/04/2024 6:00 AM EDT Narrative [facility] - 05/11/2024 10:42 AM EDT ----- ------- Name: AustinMorrisy Age/Sex: 23/F : 2000 Unit#: [id number] Attend Dr: DEEJAY SANDOVAL CNM Re05/03/24 Status: DEP REF Location: [facility] Disch: ----- ------- SPEC : [id number] RECD: 05/04/24 STATUS: ALEXANDRA FAM NUM: [id number] FIDE: 05/03/[address]: DEEJAY SANDOVAL CNM ENTERED: 05/04/24 SP TYPE: Pap Smr OTHR DR: ORDERED: Pap Smear, PAP path review Interpretation ABNORMAL PAP TEST. Satisfactory for evaluation, with mildly dysplastic squamous cells / HPV cytopathic change (ALLISON 1; low grade squamous intraepithelial lesion). Scant cellularity. Clinical Information LMP: Unknown date Previous PAP test: Unknown date, WNL Material Received Cervix ----- ------- Signed (signature on file) Laila Pearson MD 05/11/24 1042 ----- ------- END OF REPORT Deejay Sandoval [facility] CYTOLOGY ORDERABLES F inal Result [facility] [address] [place] [phone] * Lipid Panel, Standard (04/25/2024 12:40 PM EDT) Triglycerides 84 <150 mg/dL [facility] Comment:Desirable Triglyceri de: less than 150 mg/dLBorderline High Triglyceride 150-199 mg/dLHigh Triglyceride: 200-499 mg/dLVery High Triglyceride: greater than or equal to 5OO mg/dL Cholesterol 172 <200 mg/dL [facility] Comment:Desirable Cholestero l: less than 200 mg/dLBorderline High Cholesterol: 200-239 mg/dLHigh Cholesterol: greater than 239 mg/dL LDL Cholesterol Calculated 89 <100 mg/dL [facility] Comment:Desirable LDL: less than 100 mg/dLNear Optimal/Above Optimal LDL: 110- 129 mg/dLBorderline High LDL: 130-159 mg/dLHigh LDL: 160-189 mg/dLVery High LDL: greater than or equal to 190 mg/dL HDL Cholesterol 67 >40 mg/dL [facility] Comment:Desirable HDL: great er than 40 mg/dL Note: This HDL assay may give artificially low results in patients with liver disease. Blood Venous blood specimen / Unknown 04/25/2024 12:40 PM EDT 04/25/2024 1:49 PM EDT us Caitlin Jama MD LAB BLOOD ORDERABLES Final Result Performing Organization Address [facility]/ZIP Co de Phone Number [facility] [address] [place] [phone] * Hepatitis A,B,C Profile (12/19/2023 12:03 PM EST) Hepatitis A IgM Nonreactive Nonreactive [facility] Comment:IgM antibodies to MITCHELL V not detected; does not exclude earlyacute or recovered HAV infection. ~Hepatitis B Surface Antibody REACTIVE Nonreactive [facility] Comment:REACTIVE: > 11.99 mI U/mL Hepatitis B Core Antibody Nonreactive Nonreactive [facility] Hepatitis C Antibody Nonreactive Nonreactive [facility] Comment:Antibodies to HCV no t detected; does not exclude early acuteHCV infection. Hepatitis B Surface Ag Negative Negative [facility] Blood Venous blood specimen / Unknown 12/19/2023 12:03 PM EST 12/19/2023 1:37 PM EST us Deejay Sandoval CNM LAB BLOOD ORDERABLES Lisseth l Result Performing Organization Address City/[facility]/ZIP Co de Phone Number [facility] [address] [place] [phone] from Last 3 Months or Most Recently Relevant to Health Maintenance Insurance Care Teams Staff Engineer Relationship Specialty Start Date End Date Jolene Patel FNP [address] [place] [phone] PCP - General Family Medicine 08/12/21
--- OUTSIDE RECORDS SUMMARY | 2024-10-20 07:56 | XMS_ITS | Encounter Summary ---
Author Organization [employer] Address [address] [facility] [address] [place] [address] Care Team Providers Care Senior Electrical Design Engineer Name Role Phone [facility] Primary Care Provider [phone] Reason for Visit * Reason Comments Med Refill Encounter Details Date Type Department Care Team (Late st Contact Info) Description 05/18/2022 Refill [facility] [address] [place], [place] [phone] [facility] [address] [place] [address] Upper back pain on right side Social [...] PM EDT documented as of this encounter Functional Status * Over the past 2 weeks, how often have you been bothered by any of the following problems? Question Answer Date of Assessment Author Patient Health Questionnaire-2 Score 4 05/18/2022 3:18 PM Clare Caballero MA * If you checked off any problems on this questionnaire so far, Question Answer Date of Assessment Author How difficult have these problems made it for you to do your work, take care of things at home, or get along with other people? Very difficult 05/18/2022 3:18 PM Clare Caballero MA * Over the past 2 weeks, how often have you been bothered by any of the following problems? Question Answer Date of Assessment Author Little interest or pleasure in doing things More than half the days 05/18/2022 3:18 PM Clare Caballero MA Feeling down, depressed, or hopeless More than half the days 05/18/2022 3:18 PM Clare Caballero MA Trouble falling or staying asleep, or sleeping too much More than half the days 05/18/2022 3:18 PM Clare Caballero MA Feeling tired or having little energy More than half the days 05/18/2022 3:18 PM Clare Caballero MA Poor appetite or overeating Nearly every day 05/18/2022 3:18 PM Clare Caballero MA Feeling bad about yourself - or that you are a failure or have let yourself or your family down Nearly every day 05/18/2022 3:18 PM Clare Caballero MA Trouble concentrating on things, such as reading the newspaper or watching television More than half the days 05/18/2022 3:18 PM Clare Caballero MA Moving or speaking so slowly that other people could have noticed? Or the opposite - being so fidgety or restless that you have been moving around a lot more than usual. Several days 05/18/2022 3:18 PM Clare Caballero MA Thoughts that you would be better off or hurting yourself in some way Several days 05/18/2022 3:18 PM EDT Clare Roth MA Patient Health Questionnaire-9 Score 18 05/18/2022 3:18 PM EDT Clare Roth MA documented as of this encounter Plan of Treatment Upcoming Encounters Date Type Department Care Team (Late st Contact Info) Description 11/14/2024 9:30 AM EDT Office Visit [facility] [address] [place] [address] Jolene Patel FNP [address] [place] [address] documented as of this encounter Visit Diagnoses Diagnosis Upper back pain on right side documented in this encounter Additional Health Concerns Assessment Noted Time PHQ-9 Depression Total Score: 18 023 3:18 PM EDT documented as of this encounter Care Teams Senior Electrical Design Engineer Relationship Specialty Start Date End Date Jolene Patel FNP [address] [place] [address] PCP - General Family Medicine 08/12/21 documented as of this encounter
--- OUTSIDE RECORDS SUMMARY | 2024-10-20 07:56 | XMS_ITS | Encounter Summary ---
Author Organization [employer] Address [address] [place] [address] [address] [place] [address] Care Team Providers Care Insole Stiffener Name Role Phone [facility] Primary Care Provider [phone] Reason for Visit * Reason Onset Date Comments triage 05/18/2022 Encounter Details Date Type Department Care Team ([facility] st Contact Info) Description 05/18/2022 Telephone [facility] [address] [place], [place] [phone] [facility] [address] [place] [address] triage Social History Tobacco Use Types Packs/Day [...] Roth MA documented as of this encounter Miscellaneous Notes [...] night. Pt is given the crisis number [phone] to call if needs to talk to [...] going to contact mom at Ext : [phone] The caller accepted this outcome documented in this encounter Plan of Treatment Upcoming Encounters Date Type Department Care Team (Late st Contact Info) Description 11/14/2024 9:30 AM EDT Office Visit [facility] [address] [place] [address] Jolene Patel FNP [address] [place] [address] documented as of this encounter Visit Diagnoses Not on filedocumented in this encounter Additional Health Concerns Assessment Noted Time PHQ-9 Depression Total Score: 18 023 3:18 PM EDT documented as of this encounter Care Teams Insole Stiffener Relationship Specialty Start Date End Date Jolene Patel FNP [address] [place] [address] PCP - General Family Medicine 08/12/21 documented as of this encounter
== END 2024-10-20 07:53 | disposition home or self-care (01) ==
LOC: HO.LAB 07:52
PROVIDERS: PCP Registered Nurse; Visit Provider Advanced Practice Midwife
DX: F64.0 Transsexualism (principal)
CPT/HCPCS: 36415; 84403

== ENCOUNTER 2024-12-06 09:02 | Outpatient (REF) | payer OTHER, SELFPAY ==
--- NOTE | 2024-12-06 | EMG_ITS ---
Chief complaint:?G57.91 Unspecified mononeuropathy of right lower limb Reason for referral: Neuropathy of right thigh, pain and numbness Referred by:Brad Perez Procedure done: Right lower extremity NCS/EMG Right peroneal and tibial motor studies were performed with the for responses. Tibial H-reflex was obtained. Right superficial peroneal and sural sensory studies were performed and bilateral lateral femoral cutaneous sensory studies were performed. Needle examination was performed. Tibial and peroneal motor studies, and superficial peroneal and sural sensory studies were within normal range. Bilateral femoral cutaneous studies revealed significant reduction of amplitude, in comparison to sural and superficial peroneal, with normal conduction velocities. EMG data did not reveal any significant abnormality. 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
== END 2024-12-06 09:03 | disposition home or self-care (01) ==
LOC: HO.NEURO 09:02
PROVIDERS: PCP Registered Nurse
DX: G57.91 Unspecified mononeuropathy of right lower limb (principal); M79.651 Pain in right thigh; R20.0 Anesthesia of skin
CPT/HCPCS: 95886; 95910

== ENCOUNTER → 2024-12-06 09:05 | Outpatient (BNV) | payer OTHER, SELFPAY | PROVIDERS: PCP Registered Nurse; Visit Provider Psychiatry & Neurology Neurology | DX: G57.91 Unspecified mononeuropathy of right lower limb (principal) | CPT/HCPCS: 95886; 95910 ==